=== PATIENT | female | born 2000 | race Caucasian/White ===

== ENCOUNTER 2020-12-06 09:32 | Emergency (ER) | payer OTHER ==
[~2020-12-06] VITALS: Ht 160 cm; Wt 54.5 kg
[2020-12-06 09:55] LABS: BILIRUBIN,URINE NEGATIVE (NEG); CLARITY,URINE CLEAR; COLOR,URINE YELLOW; NITRITE,URINE NEGATIVE (NEG); PROTEIN,URINE 100 mg/dL (NEG-TRACE)
[2020-12-06] MEDS ORDERED: IV NORMAL SALINE 1000ML BAG 1,000 ML IV ONE (10:00)
--- NOTE | 2020-12-06 10:12 | PHYS DOC ---
Past Medical History Past Medical History: Other Additional Past Medical Histor: gilberts syndrome Past Surgical History: Tonsillectomy Smoking Status: Never Smoker Alcohol Use: None General Adult EDM: Chief Complaint: FEVER HPI: HPI: Patient is a 20 year old female who presented to ER for evaluation of low abdominal pain for 4 days associated with urinary frequency and urgency with pain. Patient took some Azo few days ago and the pain improved with urination but she still has lower abdominal pain. Patient denies any cough, no chest pain. Patient did have fever and chill. Review of Systems: Review of Systems: Constitutional: Denies fever or chills. [] Eyes: Denies change in visual acuity. [] HENT: Denies nasal congestion or sore throat. [] Respiratory: Denies cough or shortness of breath. [] Cardiovascular: Denies chest pain or edema. [] GI: Positive for low abdominal pain with nausea, no vomiting, no diarrhea : Denies dysuria. Positive for urinary frequency. Musculoskeletal: Denies back pain or joint pain. [] Integument: Denies rash. [] Neurologic: Denies headache, focal weakness or sensory changes. [] Endocrine: Denies polyuria or polydipsia. [] Lymphatic: Denies swollen glands. [] Psychiatric: Denies depression or anxiety. [] Heart Score: C/O Chest Pain: N/A Risk Factors: Risk Factors: DM, Current or recent (<one month) smoker, HTN, HLP, family history of CAD, obesity. Risk Scores: Score 0 - 3: 2.5% MACE over next 6 weeks - Discharge Home Score 4 - 6: 20.3% MACE over next 6 weeks - Admit for Clinical Observation Score 7 - 10: 72.7% MACE over next 6 weeks - Early Invasive Strategies Current Medications: Current Medications Medications (Trade) Dose Ordered Sig/Lary Start Time Stop Time Status Last Admin Dose Admin Ceftriaxone Sodium (Rocephin) 1 gm 1X ONCE 12/06/20 10:30 12/06/20 10:31 Sodium Chloride 1,000 ml @ 1,000 mls/hr 1X ONCE 12/06/20 10:00 12/06/20 10:59 Allergies: Allergies: Allergies Coded Allergies Type Severity Reaction Last Updated Verified No Known Drug Allergies 12/06/20 No Physical Exam: PE: Constitutional: Well developed, well nourished, no acute distress, non-toxic appearance. [] HENT: Normocephalic, atraumatic, bilateral external ears normal, oropharynx moist, no oral exudates, nose normal. [] Eyes: PERRLA, EOMI, conjunctiva normal, no discharge. [] Neck: Normal range of motion, no tenderness, supple, no stridor. [] Cardiovascular:Heart rate regular rhythm, no murmur [] Lungs & Thorax: Bilateral breath sounds clear to auscultation [] Abdomen: Bowel sounds normal, soft, no tenderness, no masses, no pulsatile masses. [] Skin: Warm, dry, no erythema, no rash. [] Back: No tenderness, no CVA tenderness. [] Extremities: No tenderness, no cyanosis, no clubbing, ROM intact, no edema. [] Neurologic: Alert and oriented X 3, normal motor function, normal sensory function, no focal deficits noted. [] Psychologic: Affect normal, judgement normal, mood normal. [] Current Patient Data: Labs: Laboratory Tests Test 12/06/20 09:51 POC Urine HCG, Qualitative Hcg negative (Negative) Vital Signs: Vital Signs Date Time Temp Pulse Resp B/P (MAP) Pulse Ox O2 Delivery O2 Flow Rate FiO2 12/06/20 09:52 99.1 114 16 136/79 (98) 98 Room Air 99.1 EKG: EKG: [] Radiology/Procedures: Radiology/Procedures: [][facility] [address] [place] [address] IMAGING REPORT Signed PATIENT: DAKOTA LANE ACCOUNT: [id number] : 2000 LOCATION: ER AGE: 20 SEX: F EXAM STATUS: REG ER ORD. PHYSICIAN: CONSUELO MURRAY DO REASON: lower abdominal pain, fever PROCEDURE: CT ABD PELV W/ IV CONTRST ONLY CT abdomen pelvis with contrast. HISTORY: Lower abdominal pain, fever CT scan the abdomen pelvis was done using 75 mL Isovue-370 contrast. Lung bases are clear. There is no effusion. Liver is normal in appearance. Spleen is unremarkable. Adrenal glands are normal. Pancreas is normal. There is no mass or hydronephrosis in the left kidney. There is inhomogeneous enhancement of the right kidney most consistent with acute pyelonephritis. Bowel pattern is normal without obstruction. Appendix is normal. Ovaries are generous in size. Left ovarian cyst or prominent follicle is possible. There is no bowel obstruction. There is no free fluid or free air. IMPRESSION: 1. Pyelonephritis right kidney. 2. Prominent ovaries with probable small ovarian cysts or follicles. 3. Normal appendix. 4. No bowel obstruction PQRS Compliance Statement: One or more of the following individualized dose reduction techniques were utilized for this examination: 1. Automated exposure control 2. Adjustment of the mA and/or kV according to patient size 3. Use of iterative reconstruction technique Electronically signed by: Naveen Houston MD (12/06/2020 12:09 PM) [id number] DICTATED and SIGNED BY: NAVEEN HOUSTON MD DATE: 12/06/20 [id number] Course & Med Decision Making: Course & Med Decision Making Pertinent Labs and Imaging studies reviewed. (See chart for details) Patient is a 20-year-old female who was found to have pyelonephritis, patient was given IV fluids, IV Rocephin and pain medication in the ER, she felt much better. Patient will be discharged home with 10-day course of Levaquin. She will need to follow-up with her family physician for reevaluation next week. Patient is amenable to plan of care. Anitra Disclaimer: Anitra Disclaimer: This electronic medical record was generated, in whole or in part, using a voice recognition dictation system. Departure Departure Impression: Primary Impression: Pyelonephritis Disposition: DC HOME SELF CARE/HOMELESS Condition: IMPROVED Referrals: NON,STAFF (PCP) Please follow up with your doctor on Monday for reevaluation Patient Instructions: Pyelonephritis, Adult Additional Instructions: Thank you for visiting our Emergency Department. We appreciate you trusting us with your care. If any additional problems come up don't hesitate to return to visit us. Please follow up with your primary care provider so they can plan additional care if needed and know about the problem that you had. If symptoms worsen come back to the Emergency Department. Any concerning symptoms that start such as chest pain, shortness of air, weakness or numbness on one side of the body, running high fevers or any other concerning symptoms return to the ER. Scripts Naproxen Sodium (ANAPROX DS) 550 Mg Tablet 1 TAB PO BID PRN for PAIN for 15 Days, #30 TAB 0 Refills Prov: CONSUELO MURRAY DO 12/06/20 Levofloxacin (LEVOFLOXACIN) 750 Mg Tablet 1 TAB PO DAILY for 10 Days, #10 TAB Prov: CONSUELO MURRAY DO 12/06/20 CONSUELO MURRAY DO Dec 06, 2020 10:12
[2020-12-06 10:13] LABS: BACTERIA,URINE MODERATE /HPF (0-FEW)
[2020-12-06] MEDS ORDERED: ONDANSETRON PF 4 MG/2 ML VIAL. IVP ONE (10:30)
[2020-12-06] MEDS ORDERED: cefTRIAXone IV Push 1 GM VIAL. IVP ONE (10:30)
[2020-12-06] MEDS ORDERED: fentaNYL PF VIAL 100 MCG/2 ML VIAL IVP ONE (10:30)
[2020-12-06 10:43] LABS: BASO % 0 % (0-3); EOS % 0 % (0-3); HEMATOCRIT 41.6 % (36.0-47.0); HEMOGLOBIN 14.1 g/dL (12.0-15.5); LYMPH # 0.5 x10^3/uL (1.0-4.8); LYMPH % 3 % (24-48); MEAN CORPUSCULAR HEMOGLOBIN 31 pg (25-35); MEAN CORPUSCULAR HGB CONC 34 g/dL (31-37); MEAN CORPUSCULAR VOLUME 93 fL (79-100); MONO # 1.3 x10^3/uL (0.0-1.1); MONO % 9 % (0-9); NEUT # 13.5 x10^3/uL (1.8-7.7); NEUT % 88 % (31-73); PLATELET COUNT 124 x10^3/uL (140-400); RED CELL DISTRIBUTION WIDTH 12.8 % (11.5-14.5); WHITE BLOOD COUNT 15.4 x10^3/uL (4.0-11.0)
[2020-12-06 10:45] VITALS: BP 129/83
[2020-12-06 10:52] LABS: CALCIUM 8.6 mg/dL (8.5-10.1); POTASSIUM 3.3 mmol/L (3.5-5.1)
[2020-12-06 10:58] LABS: ALBUMIN 3.1 g/dL (3.4-5.0); ALBUMIN/GLOBULIN RATIO 0.9 (1.0-1.7); TOTAL BILIRUBIN 2.2 mg/dL (0.2-1.0); TOTAL PROTEIN 6.7 g/dL (6.4-8.2)
[2020-12-06] MEDS ORDERED: ACETAMINOPHEN 500 MG TABLET PO ONE (11:00)
[2020-12-06 11:08] LABS: % BANDS 9 % (0-9); % LYMPHS 5 % (24-48); % MONOS 4 % (0-10); % SEGS 82 % (35-66); PLT ESTIMATE ADEQUATE (ADEQUATE)
[2020-12-06] MEDS ORDERED: MORPHINE SULFATE 4 MG/ML VIAL. IV ONE (11:30)
[2020-12-06] MEDS ORDERED: IOHEXOL 300 MG/ML 100ML VIAL. IV ONE (12:00)
[2020-12-06] MEDS ORDERED: CONTRAST GIVEN. MC PRN (12:00)
--- NOTE | 2020-12-06 12:11 | RAD ---
CT abdomen pelvis with contrast. HISTORY: Lower abdominal pain, fever CT scan the abdomen pelvis was done using 75 mL Isovue-370 contrast. Lung bases are clear. There is n o effusion. Liver is normal in appearance. Spleen is unremarkable. Adrenal glands are normal. Pancrea s is normal. There is no mass or hydronephrosis in the left kidney. There is inhomogeneous enhancemen t of the right kidney most consistent with acute pyelonephritis. Bowel pattern is normal without obst ruction. Appendix is normal. Ovaries are generous in size. Left ovarian cyst or prominent follicle is possible. There is no bowel obstruction. There is no free fluid or free air. IMPRESSION: 1. Pyelonephritis right kidney. 2. Prominent ovaries with probable small ovarian cysts or follicles. 3. Normal appendix. 4. No bowel obstruction PQRS Compliance Statement: One or more of the following individualized dose reduction techniques were utilized for this examinat ion: 1. Automated exposure control 2. Adjustment of the mA and/or kV according to patient size 3. Use of iterative reconstruction technique Electronically signed by: Naveen Anderson MD (12/06/2020 12:09 PM) [id number]
[2020-12-06] MEDS ORDERED: KETOROLAC 30 MG/ML VIAL. IVP ONE (12:30)
[2020-12-06] MEDS ORDERED: NAPR-682 PO (13:41)
[2020-12-06] MEDS ORDERED: LEVO750T5 PO (13:41)
[2020-12-07] MEDS ORDERED: ALPR0.5T6 PO (18:04)
== END 2020-12-06 13:56 | disposition home or self-care (01) ==
LOC: ER 09:32
DX: N12 Tubulo-interstitial nephritis, not specified as acute or chronic (principal); R10.30 Lower abdominal pain, unspecified; R35.0 Frequency of micturition; Z90.89 Acquired absence of other organs
CPT/HCPCS: 36415; 74177; 80053; 81001; 81025; 85007; 85025; 87086; 96361; 96374; 96375; 99285; J0696; J1885; J2270; J2405; J3010; J7030

== ENCOUNTER 2020-12-07 13:34 | Inpatient (IN) | payer OTHER ==
[~2020-12-07] VITALS: Ht 157.5 cm; Wt 52.0 kg
[~2020-12-07 13:34] MED LIST: LEVO750T5 PO; NAPR-682 PO
--- NOTE | 2020-12-07 14:27 | PHYS DOC ---
Past Medical History Past Medical History: Other Additional Past Medical Histor: gilberts syndrome Past Surgical History: Tonsillectomy Smoking Status: Never Smoker Alcohol Use: None General Adult EDM: Chief Complaint: FLANK PAIN HPI: HPI: Patient is a 20 year old female who presents to the emergency department for admission to the hospital for right-sided pyelonephritis. Patient states she was seen here yesterday in the emergency department and evaluated for low abdominal pain on the right side for 4 days with increased urinary frequency and pain with urination. Patient states she had taken some [id number] Azo prior to being seen yesterday with noted improvement in pain with on urination but still had the abdominal pain. Patient states she was started on 750 mg Levaquin and was told if her symptoms did not get better to come back for admission to the hospital. Patient currently denies chest pain, shortness of breath, back pain, rashes, fever or chills. Patient does state that her abdominal pain has now given her a headache and made her feel as if she was short of breath. Patient denies any increased urination or increased thirst. Patient denies any swelling of her glands. Patient denies any recent depressions or anxieties. Patient denies chest congestion, nasal congestion, sore throat. Review of Systems: Review of Systems: 14 body systems of review of systems have been reviewed. See HPI for pertinent positives and negative responses, otherwise all other systems are negative, nonpertinent or noncontributory. Heart Score: C/O Chest Pain: No Risk Factors: Risk Factors: DM, Current or recent (<one month) smoker, HTN, HLP, family history of CAD, obesity. Risk Scores: Score 0 - 3: 2.5% MACE over next 6 weeks - Discharge Home Score 4 - 6: 20.3% MACE over next 6 weeks - Admit for Clinical Observation Score 7 - 10: 72.7% MACE over next 6 weeks - Early Invasive Strategies Allergies: Allergies: Allergies Coded Allergies Type Severity Reaction Last Updated Verified No Known Drug Allergies 12/06/20 No Physical Exam: PE: Constitutional: Well developed, well nourished, no acute distress, non-toxic appearance. 20-year-old female in no apparent distress. HENT: Normocephalic, atraumatic, bilateral external ears normal, oropharynx moist, no oral exudates, nose normal. Oropharynx pink, no postnasal drip, no tonsillar edema or swelling, no signs of deep tissue infection, bilateral TMs normal, nasal turbinates not swollen without drainage. Eyes: PERRLA, EOMI, conjunctiva normal, no discharge. Neck: Normal range of motion, no tenderness, supple, no stridor. No nuchal rigidity, no meningismus signs, no cervical spinal pain. Cardiovascular:Heart rate regular rhythm, no murmur, heart sounds S1-S2 to auscultation. Lungs & Thorax: Bilateral breath sounds clear to auscultation all lung rivas. No adventitious lung sounds appreciated. Abdomen: Bowel sounds normal, soft, no masses, no pulsatile masses. Pain to palpation right upper and lower quadrant and flank pain. Skin: Warm, dry, no erythema, no rash. Back: No midline spinal tenderness to palpation, no left-sided CVA tenderness, positive right-sided CVA tenderness. Extremities: No tenderness, no cyanosis, no clubbing, ROM intact, no edema. Distal cap refill less than 2 seconds, +2/4 pulses. Neurologic: Alert and oriented X 3, normal motor function, normal sensory function, no focal deficits noted. Psychologic: Affect normal, judgement normal, mood normal. EKG: EKG: [] Radiology/Procedures: Radiology/Procedures: [] Course & Med Decision Making: Course & Med Decision Making Pertinent Labs and Imaging studies reviewed. (See chart for details) 20-year-old female, vital signs reviewed, presents to the ER with concerns of ongoing pyelonephritis and is requesting admission as directed by the ED provider she seen yesterday here at [facility]. Physical exam was consistent with pyelonephritis. ED plan will insert saline lock, give pain medications and nausea medications, draw CBC, CMP, urinalysis, repeat urine test, call HIMS physician for admission to hospital for diagnosis of right-sided pyelonephritis with failed home therapy. Patient does have a history of hypertension, states she is full to take atenolol daily, states she has not taken it in 2 months, states she is just not into taking care of her blood pressure the states. Discussed patient case with Dr. Jeong who has agreed to accept patient under admission to the medical surgical unit with a diagnosis of right pyelonephritis with the information he was given by me. Dr. Jeong recommended pharmacy dosed Zosyn, this was ordered in the ED today. Dr. Jeong has assumed patient care at this time. Anitra Disclaimer: Anitra Disclaimer: This electronic medical record was generated, in whole or in part, using a voice recognition dictation system. Departure Departure Impression: Primary Impression: Pyelonephritis Disposition: 09 ADMITTED INPT THIS HOSP (Admit to Dr. Jeong to the medical surgical unit with diagnosis of right-sided pyelonephritis) [facility] Referrals: RAE SOMERS MD (PCP) JOHN MEJIA APRN Dec 07, 2020 14:27
[2020-12-07] MEDS ORDERED: HYDROmorphone 2 MG/ML VIAL IVP ONE (14:45)
[2020-12-07] MEDS ORDERED: IV NORMAL SALINE 1000ML BAG 1,000 ML IV ONE (14:45)
[2020-12-07] MEDS ORDERED: KETOROLAC 15 MG/ML VIAL. IVP ONE (14:45)
[2020-12-07] MEDS ORDERED: ONDANSETRON PF 4 MG/2 ML VIAL. IVP ONE (14:45)
[2020-12-07 14:48] LABS: BASO % 0 % (0-3); EOS % 0 % (0-3); HEMATOCRIT 38.7 % (36.0-47.0); HEMOGLOBIN 13.2 g/dL (12.0-15.5); LYMPH # 0.9 x10^3/uL (1.0-4.8); LYMPH % 8 % (24-48); MEAN CORPUSCULAR HEMOGLOBIN 31 pg (25-35); MEAN CORPUSCULAR HGB CONC 34 g/dL (31-37); MEAN CORPUSCULAR VOLUME 92 fL (79-100); MONO # 1.1 x10^3/uL (0.0-1.1); MONO % 10 % (0-9); NEUT % 81 % (31-73); PLATELET COUNT 121 x10^3/uL (140-400); RED BLOOD COUNT 4.19 x10^6/uL (3.50-5.40)
[2020-12-07 14:58] LABS: CALCIUM 8.8 mg/dL (8.5-10.1); CREATININE 0.8 mg/dL (0.6-1.0); GFR 90.5
[2020-12-07 15:03] LABS: ALBUMIN 2.7 g/dL (3.4-5.0); ALBUMIN/GLOBULIN RATIO 0.7 (1.0-1.7); TOTAL BILIRUBIN 1.9 mg/dL (0.2-1.0); TOTAL PROTEIN 6.5 g/dL (6.4-8.2)
[2020-12-07] MEDS ORDERED: PIP/TAZO PER PHARMACY MC PRN (15:45)
[2020-12-07] MEDS ORDERED: PIPERACILLIN/TAZOBACTAM 3.375 GM in IV NORMAL SALINE 50ML 50 ML IV ONE (15:45)
[2020-12-07 17:02] LABS: BILIRUBIN,URINE NEGATIVE (NEG); CLARITY,URINE CLEAR; COLOR,URINE YELLOW; NITRITE,URINE NEGATIVE (NEG); PH,URINE 6.5 (<5.0-8.0); PROTEIN,URINE 30 mg/dL (NEG-TRACE)
[2020-12-07 17:11] LABS: RBC,URINE OCC /HPF (0-2)
[2020-12-07 17:12] LABS: BACTERIA,URINE FEW /HPF (0-FEW)
--- NOTE | 2020-12-07 17:47 | HP ---
ADMIT DATE: 12/07/2020 CHIEF COMPLAINT: Flank pain. HISTORY OF PRESENT ILLNESS: The patient is a pleasant 20-year-old female who was sent home from the ER yesterday with a diagnosis of a UTI. She did get some antibiotics, but now her symptoms are worsening. She tried [id number] Azo, but that still did not work. She rates her symptoms at 9/10. I discussed the case with the ER physician. It appears she has pyelonephritis. We are going to admit the patient, give her fluids and antibiotics. PAST MEDICAL HISTORY: Gilbert syndrome, tonsillectomy and UTI and pyelonephritis. ALLERGIES: None. FAMILY HISTORY: Pyelonephritis. SOCIAL HISTORY: She does not drink, smoke or take drugs. She has a 3-year-old son. 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 MEDICATIONS: Reviewed, please refer to the MRAD. REVIEW OF SYSTEMS: GENERAL: No history of weight change, weakness or fevers. SKIN: No bruising, hair changes or rashes. EYES: No blurred, double or loss of vision. NOSE AND THROAT: No history of nosebleeds, hoarseness or sore throat. HEART: No history of palpitations, chest pain or shortness of breath on exertion. LUNGS: Denies cough, hemoptysis, wheezing or shortness of breath. GASTROINTESTINAL: Denies changes in appetite, nausea, vomiting, diarrhea or constipation. GENITOURINARY: No history of frequency, urgency, hesitancy or nocturia. NEUROLOGIC: Denies history of numbness, tingling, tremor or weakness. PSYCHIATRIC: No history of panic, anxiety or depression. ENDOCRINE: No history of heat or cold intolerance, polyuria or polydipsia. EXTREMITIES: Denies muscle weakness, joint pain, pain on walking or stiffness. MUSCULOSKELETAL: She complains of flank pain. PHYSICAL EXAMINATION: VITALS: Within normal limits and are stable. GENERAL: No apparent distress. Alert and oriented. HEENT: Normal cephalic atraumatic, external auditory canals are patent. EYES: Extraocular muscles are intact, pupils are equally round and reactive to light and accommodation. MUSCULOSKELETAL: Well developed, well nourished, good range of motion. ENDOCRINE: No thyromegaly was palpated. LYMPHATICS: No cervical chain or axillary nodes were noted. HEMATOPOIETIC: No bruising. NECK: Supple, no JVD, no thyromegaly was noted. LUNGS: Clear to auscultation in all lung rivas without rhonchi or wheezing. HEART: RRR, S1, S2 present. Peripheral pulses intact, no obvious murmurs were noted. ABDOMEN: Soft, nontender. Positive bowel sounds no organomegaly, normal bowel sounds. EXTREMITIES: Without any cyanosis, clubbing, or edema. Pedal pulses intact, Homans sign is negative. NEUROLOGIC: Normal speech, normal tone. A & O x 3, moves all extremities, no obvious focal deficits. PSYCHIATRIC: Normal affect, normal mood. Stable. SKIN: No ulcerations or rashes, good skin turgor, no jaundice. VASCULAR: Good capillary refill, neurovascular bundle appears to be intact. LABORATORY DATA: White count is 11. Electrolytes are normal other than potassium of 3. Urinalysis shows trace leukocyte esterase and 1-4 white cells. ASSESSMENT AND PLAN: Urinary tract infection, probable pyelonephritis and hypokalemia. The patient has been admitted. We will start IV fluids, IV antibiotics. Replace her potassium. Trend labs, home medications, DVT prophylaxis. Full code. LUCIANO WAKEFIELD DO DR: JANE/christine JOB#: [id number] / [id number]
[2020-12-07] MEDS ORDERED: ALPR0.5T6 PO (18:04)
[2020-12-07 18:30] VITALS: BP 119/73
[2020-12-07] MEDS: HYDROcodone/APAP 5/325MG 1 TAB TABLET PO PRN (19:46)
[2020-12-07] MEDS: IV NORMAL SALINE 1000ML BAG 1,000 ML IV SCH (19:51)
[2020-12-07 23:00] VITALS: BP 134/87
[2020-12-08] MEDS: PIPERACILLIN/TAZOBACTAM 3.375 GM in IV NORMAL SALINE 50ML 50 ML IV SCH ×4 (00:10→17:43)
[2020-12-08] MEDS: IBUPROFEN 200 MG TABLET. PO PRN ×3 (00:13→17:41)
[2020-12-08] MEDS: HYDROcodone/APAP 5/325MG 1 TAB TABLET PO PRN ×3 (00:13→13:40)
[2020-12-08 03:00] VITALS: BP 129/82
[2020-12-08] MEDS: IV NORMAL SALINE 1000ML BAG 1,000 ML IV SCH ×3 (06:24→21:50)
[2020-12-08 07:00] VITALS: BP 123/84
--- NOTE | 2020-12-08 08:08 | PDOC ---
PROGRESS NOTES Date of Service: DATE: 12/08/20 TIME: 08:07 Chief Complaint Chief Complaint ASSESSMENT AND PLAN: Urinary tract infection, acute pyelonephritis hypokalemia. fever sepsis plan admitted. IV fluids, IV antibiotics. Replace potassium. Trend labs, home medications, DVT prophylaxis. Full code. blood culture renal sono 12-08 History of Present Illness History of Present Illness CHIEF COMPLAINT: Flank pain. HISTORY OF PRESENT ILLNESS: The patient is a pleasant 20-year-old female who was sent home from the ER yesterday with a diagnosis of a UTI. She did get some antibiotics, but now her symptoms are worsening. She tried smmb-[id number] Azo, but that still did not work. She rates her symptoms at 9/10. I discussed the case with the ER physician. It appears she has pyelonephritis. We are going to admit the patient, give her fluids and antibiotics. PAST MEDICAL HISTORY: Gilbert syndrome, tonsillectomy and UTI and pyelonephritis. ALLERGIES: None. FAMILY HISTORY: Pyelonephritis. SOCIAL HISTORY: She does not drink, smoke or take drugs. She has a 3-year-old son. 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 MEDICATIONS: Reviewed, please refer to the MRAD. REVIEW OF SYSTEMS: GENERAL: No history of weight change, weakness or fevers. SKIN: No bruising, hair changes or rashes. EYES: No blurred, double or loss of vision. NOSE AND THROAT: No history of nosebleeds, hoarseness or sore throat. HEART: No history of palpitations, chest pain or shortness of breath on exertion. LUNGS: Denies cough, hemoptysis, wheezing or shortness of breath. GASTROINTESTINAL: Denies changes in appetite, nausea, vomiting, diarrhea or constipation. GENITOURINARY: No history of frequency, urgency, hesitancy or nocturia. NEUROLOGIC: Denies history of numbness, tingling, tremor or weakness. PSYCHIATRIC: No history of panic, anxiety or depression. ENDOCRINE: No history of heat or cold intolerance, polyuria or polydipsia. EXTREMITIES: Denies muscle weakness, joint pain, pain on walking or stiffness. MUSCULOSKELETAL: She complains of flank pain. Vitals Vitals Vital Signs Date Time Temp Pulse Resp B/P (MAP) Pulse Ox O2 Delivery O2 Flow Rate FiO2 12/08/20 05:47 Room Air 12/08/20 03:00 98.9 80 20 129/82 (98) 97 98.9 Physical Exam Physical Exam GENERAL: No apparent distress. Alert and oriented. HEENT: Normal cephalic atraumatic, external auditory canals are patent. EYES: Extraocular muscles are intact, pupils are equally round and reactive to light and accommodation. MUSCULOSKELETAL: Well developed, well nourished, good range of motion. ENDOCRINE: No thyromegaly was palpated. LYMPHATICS: No cervical chain or axillary nodes were noted. HEMATOPOIETIC: No bruising. NECK: Supple, no JVD, no thyromegaly was noted. LUNGS: Clear to auscultation in all lung rivas without rhonchi or wheezing. HEART: RRR, S1, S2 present. Peripheral pulses intact, no obvious murmurs were noted. ABDOMEN: Soft, nontender. Positive bowel sounds no organomegaly, normal bowel sounds. EXTREMITIES: Without any cyanosis, clubbing, or edema. Pedal pulses intact, Homans sign is negative. NEUROLOGIC: Normal speech, normal tone. A & O x 3, moves all extremities, no obvious focal deficits. PSYCHIATRIC: Normal affect, normal mood. Stable. SKIN: No ulcerations or rashes, good skin turgor, no jaundice. VASCULAR: Good capillary refill, neurovascular bundle appears to be intact. General: Alert, Oriented X3, Cooperative, No acute distress Heart: Regular rate, Normal S1, No murmurs Lungs: Clear Abdomen: Normal bowel sounds, Soft, No tenderness Extremities: No clubbing, No cyanosis Skin: No significant lesion Labs LABS EXAM: Renal sonogram. HISTORY: Acute pyelonephritis. TECHNIQUE: Sonographic imaging of the kidneys and bladder was performed. COMPARISON: CT dated 12/06/2020. FINDINGS: The kidneys are prominent in size. No solid or cystic renal lesion is seen. There is no hydronephrosis. The bladder is unremarkable. IMPRESSION: 1. Prominent renal size. 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 2. No acute sonographic finding. The recently demonstrated right pyelonephritis demonstrates no sonographic correlate. Electronically signed by: Yomaira Wellington MD (12/08/2020 10:22 AM) [id number] DICTATED and SIGNED BY: YOMAIRA WELLINGTON MD PATIENT: DAKOTA LANE: [id number] : 2000 LOCATION: ER AGE: 20 SEX: F EXAM STATUS: REG ER ORD. PHYSICIAN: CONSUELO MURRAY DO REASON: lower abdominal pain, fever PROCEDURE: CT ABD PELV W/ IV CONTRST ONLY CT abdomen pelvis with contrast. HISTORY: Lower abdominal pain, fever CT scan the abdomen pelvis was done using 75 mL Isovue-370 contrast. Lung bases are clear. There is no effusion. Liver is normal in appearance. Spleen is unremarkable. Adrenal glands are normal. Pancreas is normal. There is no mass or hydronephrosis in the left kidney. There is inhomogeneous enhancement of the right kidney most consistent with acute pyelonephritis. Bowel pattern is normal without obstruction. Appendix is normal. Ovaries are generous in size. Left ovarian cyst or prominent follicle is possible. There is no bowel obstruction. There is no free fluid or free air. IMPRESSION: 1. Pyelonephritis right kidney. 2. Prominent ovaries with probable small ovarian cysts or follicles. 3. Normal appendix. 4. No bowel obstruction PQRS Compliance Statement: One or more of the following individualized dose reduction techniques were utilized for this examination: 1. Automated exposure control 2. Adjustment of the mA and/or kV according to patient size 3. Use of iterative reconstruction technique Electronically signed by: Naveen Anderson MD (12/06/2020 12:09 PM) [id number] DICTATED and SIGNED BY: NAVEEN ANDERSON MD DATE: 12/06/20 [id number] Laboratory Tests Test 12/07/20 14:15 12/07/20 16:50 12/07/20 16:57 White Blood Count 11.0 x10^3/uL (4.0-11.0) Red Blood Count 4.19 x10^6/uL (3.50-5.40) Hemoglobin 13.2 g/dL (12.0-15.5) Hematocrit 38.7 % (36.0-47.0) Mean Corpuscular Volume 92 fL (79-100) Mean Corpuscular Hemoglobin 31 pg (25-35) Mean Corpuscular Hemoglobin Concent 34 g/dL (31-37) Red Cell Distribution Width 13.0 % (11.5-14.5) Platelet Count 121 x10^3/uL (140-400) Neutrophils (%) (Auto) 81 % (31-73) Lymphocytes (%) (Auto) 8 % (24-48) Monocytes (%) (Auto) 10 % (0-9) Eosinophils (%) (Auto) 0 % (0-3) Basophils (%) (Auto) 0 % (0-3) Neutrophils # (Auto) 9.0 x10^3/uL (1.8-7.7) Lymphocytes # (Auto) 0.9 x10^3/uL (1.0-4.8) Monocytes # (Auto) 1.1 x10^3/uL (0.0-1.1) Eosinophils # (Auto) 0.0 x10^3/uL (0.0-0.7) Basophils # (Auto) 0.0 x10^3/uL (0.0-0.2) Sodium Level 137 mmol/L (136-145) Potassium Level 3.0 mmol/L (3.5-5.1) Chloride Level 106 mmol/L (98-107) Carbon Dioxide Level 22 mmol/L (21-32) Anion Gap 9 (6-14) Blood Urea Nitrogen 10 mg/dL (7-20) Creatinine 0.8 mg/dL (0.6-1.0) Estimated GFR (Cockcroft-Gault) 90.5 BUN/Creatinine Ratio 13 (6-20) Glucose Level 54 mg/dL (70-99) Lactic Acid Level 1.2 mmol/L (0.4-2.0) Calcium Level 8.8 mg/dL (8.5-10.1) Total Bilirubin 1.9 mg/dL (0.2-1.0) Aspartate Amino Transf (AST/SGOT) 21 U/L (15-37) Alanine Aminotransferase (ALT/SGPT) 50 U/L (14-59) Alkaline Phosphatase 138 U/L (46-116) Total Protein 6.5 g/dL (6.4-8.2) Albumin 2.7 g/dL (3.4-5.0) Albumin/Globulin Ratio 0.7 (1.0-1.7) Urine Collection Type Void Urine Color Yellow Urine Clarity Clear Urine pH 6.5 (<5.0-8.0) Urine Specific [place] 1.015 (1.000-1.030) Urine Protein 30 mg/dL (NEG-TRACE) Urine Glucose (UA) Negative mg/dL (NEG) Urine Ketones (Stick) Trace mg/dL (NEG) Urine Blood Negative (NEG) Urine Nitrite Negative (NEG) Urine Bilirubin Negative (NEG) Urine Urobilinogen Dipstick 1.0 mg/dL (0.2 mg/dL) Urine Leukocyte Esterase Trace (NEG) Urine RBC Occ /HPF (0-2) Urine WBC 1-4 /HPF (0-4) Urine Squamous Epithelial Cells Few /LPF Urine Bacteria Few /HPF (0-FEW) Bedside Urine HCG, Qualitative Hcg negative (Negative) Assessment and Plan Assessmemt and Plan Problems Medical Problems: (1) Pyelonephritis Status: Acute Comment Review of Relevant I have reviewed the following items sam (where applicable) has been applied. Labs Laboratory Tests Test 12/07/20 14:15 12/07/20 16:50 12/07/20 16:57 White Blood Count 11.0 x10^3/uL (4.0-11.0) Red Blood Count 4.19 x10^6/uL (3.50-5.40) Hemoglobin 13.2 g/dL (12.0-15.5) Hematocrit 38.7 % (36.0-47.0) Mean Corpuscular Volume 92 fL (79-100) Mean Corpuscular Hemoglobin 31 pg (25-35) Mean Corpuscular Hemoglobin Concent 34 g/dL (31-37) Red Cell Distribution Width 13.0 % (11.5-14.5) Platelet Count 121 x10^3/uL (140-400) Neutrophils (%) (Auto) 81 % (31-73) Lymphocytes (%) (Auto) 8 % (24-48) Monocytes (%) (Auto) 10 % (0-9) Eosinophils (%) (Auto) 0 % (0-3) Basophils (%) (Auto) 0 % (0-3) Neutrophils # (Auto) 9.0 x10^3/uL (1.8-7.7) Lymphocytes # (Auto) 0.9 x10^3/uL (1.0-4.8) Monocytes # (Auto) 1.1 x10^3/uL (0.0-1.1) Eosinophils # (Auto) 0.0 x10^3/uL (0.0-0.7) Basophils # (Auto) 0.0 x10^3/uL (0.0-0.2) Sodium Level 137 mmol/L (136-145) Potassium Level 3.0 mmol/L (3.5-5.1) Chloride Level 106 mmol/L (98-107) Carbon Dioxide Level 22 mmol/L (21-32) Anion Gap 9 (6-14) Blood Urea Nitrogen 10 mg/dL (7-20) Creatinine 0.8 mg/dL (0.6-1.0) Estimated GFR (Cockcroft-Gault) 90.5 BUN/Creatinine Ratio 13 (6-20) Glucose Level 54 mg/dL (70-99) Lactic Acid Level 1.2 mmol/L (0.4-2.0) Calcium Level 8.8 mg/dL (8.5-10.1) Total Bilirubin 1.9 mg/dL (0.2-1.0) Aspartate Amino Transf (AST/SGOT) 21 U/L (15-37) Alanine Aminotransferase (ALT/SGPT) 50 U/L (14-59) Alkaline Phosphatase 138 U/L (46-116) Total Protein 6.5 g/dL (6.4-8.2) Albumin 2.7 g/dL (3.4-5.0) Albumin/Globulin Ratio 0.7 (1.0-1.7) Urine Collection Type Void Urine Color Yellow Urine Clarity Clear Urine pH 6.5 (<5.0-8.0) Urine Specific [place] 1.015 (1.000-1.030) Urine Protein 30 mg/dL (NEG-TRACE) Urine Glucose (UA) Negative mg/dL (NEG) Urine Ketones (Stick) Trace mg/dL (NEG) Urine Blood Negative (NEG) Urine Nitrite Negative (NEG) Urine Bilirubin Negative (NEG) Urine Urobilinogen Dipstick 1.0 mg/dL (0.2 mg/dL) Urine Leukocyte Esterase Trace (NEG) Urine RBC Occ /HPF (0-2) Urine WBC 1-4 /HPF (0-4) Urine Squamous Epithelial Cells Few /LPF Urine Bacteria Few /HPF (0-FEW) Bedside Urine HCG, Qualitative Hcg negative (Negative) Laboratory Tests Test 12/07/20 14:15 12/07/20 16:50 3/8/21 16:57 White Blood Count 11.0 x10^3/uL (4.0-11.0) Red Blood Count 4.19 x10^6/uL (3.50-5.40) Hemoglobin 13.2 g/dL (12.0-15.5) Hematocrit 38.7 % (36.0-47.0) Mean Corpuscular Volume 92 fL (79-100) Mean Corpuscular Hemoglobin 31 pg (25-35) Mean Corpuscular Hemoglobin Concent 34 g/dL (31-37) Red Cell Distribution Width 13.0 % (11.5-14.5) Platelet Count 121 x10^3/uL (140-400) Neutrophils (%) (Auto) 81 % (31-73) Lymphocytes (%) (Auto) 8 % (24-48) Monocytes (%) (Auto) 10 % (0-9) Eosinophils (%) (Auto) 0 % (0-3) Basophils (%) (Auto) 0 % (0-3) Neutrophils # (Auto) 9.0 x10^3/uL (1.8-7.7) Lymphocytes # (Auto) 0.9 x10^3/uL (1.0-4.8) Monocytes # (Auto) 1.1 x10^3/uL (0.0-1.1) Eosinophils # (Auto) 0.0 x10^3/uL (0.0-0.7) Basophils # (Auto) 0.0 x10^3/uL (0.0-0.2) Sodium Level 137 mmol/L (136-145) Potassium Level 3.0 mmol/L (3.5-5.1) Chloride Level 106 mmol/L (98-107) Carbon Dioxide Level 22 mmol/L (21-32) Anion Gap 9 (6-14) Blood Urea Nitrogen 10 mg/dL (7-20) Creatinine 0.8 mg/dL (0.6-1.0) Estimated GFR (Cockcroft-Gault) 90.5 BUN/Creatinine Ratio 13 (6-20) Glucose Level 54 mg/dL (70-99) Lactic Acid Level 1.2 mmol/L (0.4-2.0) Calcium Level 8.8 mg/dL (8.5-10.1) Total Bilirubin 1.9 mg/dL (0.2-1.0) Aspartate Amino Transf (AST/SGOT) 21 U/L (15-37) Alanine Aminotransferase (ALT/SGPT) 50 U/L (14-59) Alkaline Phosphatase 138 U/L (46-116) Total Protein 6.5 g/dL (6.4-8.2) Albumin 2.7 g/dL (3.4-5.0) Albumin/Globulin Ratio 0.7 (1.0-1.7) Urine Collection Type Void Urine Color Yellow Urine Clarity Clear Urine pH 6.5 (<5.0-8.0) Urine Specific [place] 1.015 (1.000-1.030) Urine Protein 30 mg/dL (NEG-TRACE) Urine Glucose (UA) Negative mg/dL (NEG) Urine Ketones (Stick) Trace mg/dL (NEG) Urine Blood Negative (NEG) Urine Nitrite Negative (NEG) Urine Bilirubin Negative (NEG) Urine Urobilinogen Dipstick 1.0 mg/dL (0.2 mg/dL) Urine Leukocyte Esterase Trace (NEG) Urine RBC Occ /HPF (0-2) Urine WBC 1-4 /HPF (0-4) Urine Squamous Epithelial Cells Few /LPF Urine Bacteria Few /HPF (0-FEW) Bedside Urine HCG, Qualitative Hcg negative (Negative) Medications Current Medications Sodium Chloride 1,000 ml @ 1,000 mls/hr 1X ONCE IV Last administered on 12/07/20at 14:55; Start 12/07/20 at 14:45; Stop 12/07/20 at 15:44; Status DC Ketorolac Tromethamine (Toradol 15mg Vial) 15 mg 1X ONCE IVP Last administered on 12/07/20at 14:56; Start 12/07/20 at 14:45; Stop 12/07/20 at 14:48; Status DC Hydromorphone HCl (Dilaudid) 1 mg 1X ONCE IVP Last administered on 12/07/20 14:56; Start 12/07/20 at 14:45; Stop 12/07/20 at 14:47; Status DC Ondansetron HCl (Zofran) 4 mg 1X ONCE IVP Last administered on 12/07/20at 14:56; Start 12/07/20 at 14:45; Stop 12/07/20 at 14:47; Status DC Piperacillin Sod/ Tazobactam Sod (Zosyn Per Pharmacy) 1 each PRN DAILY PRN MC SEE COMMENTS; Start 12/07/20 at 15:45 Piperacillin Sod/ Tazobactam Sod 3.375 gm/Sodium Chloride 50 ml @ 100 mls/hr 1X ONCE IV Last administered on 12/07/20at 16:12; Start 12/07/20 at 15:45; Stop 12/07/20 at 16:14; Status DC Acetaminophen/ Hydrocodone Bitart (Lortab 5/325) 1 tab PRN Q4HRS PRN PO PAIN Last administered on 12/08/20at 04:47; Start 12/07/20 at 16:45 Piperacillin Sod/ Tazobactam Sod 3.375 gm/Sodium Chloride 50 ml @ 100 mls/hr Q6HRS IV Last administered on 12/08/20at 05:52; Start 12/08/20 at 00:00 Sodium Chloride 1,000 ml @ 75 mls/hr [id number] IV Last administered on 12/08/20at 06:24; Start 12/07/20 at 17:45 Ibuprofen (Motrin) 600 mg PRN Q6HRS PRN PO INFLAMMATION Last administered on 12/08/20at 00:13; Start 12/07/20 at 23:30 Active Scripts Active Anaprox Ds (Naproxen Sodium) 550 Mg Tablet 1 Tab PO BID PRN 15 Days Levofloxacin 750 Mg Tablet 1 Tab PO DAILY 10 Days Reported Alprazolam 0.5 Mg Tablet 1 Tab PO HS PRN Vitals/I & O Vital Sign - Last 24 Hours 12/07/20 12/07/20 12/07/20 12/07/20 14:08 16:10 17:30 17:55 Temp 98.1 98.1 Pulse 113 116 84 Resp 28 B/P (MAP) 161/93 (115) 132/76 (94) 132/78 (96) Pulse Ox 100 99 99 O2 Delivery Room Air Room Air Room Air Room Air 12/07/20 12/07/20 12/07/20 12/07/20 18:30 19:30 19:46 23:00 Temp 99.2 99.8 99.2 99.8 Pulse 103 105 Resp 18 20 B/P (MAP) 119/73 (88) 134/87 (103) Pulse Ox 98 97 O2 Delivery Room Air Room Air Room Air Room Air 12/08/20 12/08/20 12/08/20 12/08/20 00:13 03:00 04:47 05:47 Temp 98.9 98.9 Pulse 80 Resp 20 B/P (MAP) 129/82 (98) Pulse Ox 97 O2 Delivery Room Air Room Air Room Air Room Air Intake and Output 12/07/20 12/07/20 12/08/20 15:00 23:00 07:00 Intake Total 1050 ml Output Total 0 ml Balance 1050 ml Justicifation of Admission Dx: Justifications for Admission: Justification of Admission Dx: Yes Comments: acute pyelonephritis, sepsis TANNER SHERWOOD MD Dec 08, 2020 08:07
[2020-12-08] MEDS ORDERED: POTASSIUM CHLORIDE 20 MEQ TABLET.ER. PO ONE (09:00)
--- NOTE | 2020-12-08 09:17 | NUR ---
SW following. Discussed with RN, pt from home with family, room air, regular diet. Pt currently on IV abx. RN advised no SW needs at this time. SW will continue to follow.
[2020-12-08 09:52] LABS: BASO % 0 % (0-3); EOS # 0.1 x10^3/uL (0.0-0.7); EOS % 1 % (0-3); HEMATOCRIT 33.8 % (36.0-47.0); HEMOGLOBIN 11.8 g/dL (12.0-15.5); LYMPH # 0.9 x10^3/uL (1.0-4.8); LYMPH % 11 % (24-48); MEAN CORPUSCULAR HEMOGLOBIN 32 pg (25-35); MEAN CORPUSCULAR HGB CONC 35 g/dL (31-37); MEAN CORPUSCULAR VOLUME 91 fL (79-100); MONO % 14 % (0-9); NEUT # 5.5 x10^3/uL (1.8-7.7); NEUT % 74 % (31-73); PLATELET COUNT 104 x10^3/uL (140-400); RED BLOOD COUNT 3.74 x10^6/uL (3.50-5.40); RED CELL DISTRIBUTION WIDTH 12.8 % (11.5-14.5); WHITE BLOOD COUNT 7.5 x10^3/uL (4.0-11.0)
[2020-12-08 10:04] LABS: CALCIUM 7.8 mg/dL (8.5-10.1); CREATININE 0.7 mg/dL (0.6-1.0); GFR 105.6
--- NOTE | 2020-12-08 10:24 | RAD ---
EXAM: Renal sonogram. HISTORY: Acute pyelonephritis. TECHNIQUE: Sonographic imaging of the kidneys and bladder was performed. COMPARISON: CT dated 12/06/2020. FINDINGS: The kidneys are prominent in size. No solid or cystic renal lesion is seen. There is no hyd ronephrosis. The bladder is unremarkable. IMPRESSION: 1. Prominent renal size. 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 2. No acute sonographic finding. The recently demonstrated right pyelonephritis demonstrates no sonog raphic correlate. Electronically signed by: Yomaira Alba MD (12/08/2020 10:22 AM) [id number]
[2020-12-08 11:00] VITALS: BP 138/97
[2020-12-08] MEDS: POLYETHYLENE GLYCOL 3350 17 GM PACKET. PO SCH (11:04)
[2020-12-08] MEDS: ONDANSETRON PF 4 MG/2 ML VIAL. IVP PRN (13:38)
[2020-12-08 15:00] VITALS: BP 138/99
--- NOTE | 2020-12-08 19:06 | NUR ---
states that the motrin or lortab did not help. she is hurting all over. would like to call dr for another pain medication. dr. walter
[2020-12-08 19:15] VITALS: BP 143/106
[2020-12-08] MEDS: MORPHINE SULFATE 2 MG/ML VIAL. IV PRN ×2 (19:41→21:52)
[2020-12-08] MEDS: LACTOBACILLUS RHAMNOSUS GG 1 CAPSULE. PO SCH (21:49)
[2020-12-08] MEDS: diphenhydrAMINE HCL 25 MG CAPSULE PO PRN (21:54)
[2020-12-08 23:26] VITALS: BP 138/96
[2020-12-09] MEDS: PIPERACILLIN/TAZOBACTAM 3.375 GM in IV NORMAL SALINE 50ML 50 ML IV SCH ×4 (00:03→17:55)
[2020-12-09] MEDS: HYDROcodone/APAP 5/325MG 1 TAB TABLET PO PRN ×2 (00:08→19:57)
[2020-12-09] MEDS: ONDANSETRON PF 4 MG/2 ML VIAL. IVP PRN ×2 (00:08→06:20)
[2020-12-09 03:14] VITALS: BP 116/74
[2020-12-09 04:46] LABS: BASO % 0 % (0-3); EOS # 0.1 x10^3/uL (0.0-0.7); EOS % 1 % (0-3); HEMATOCRIT 34.6 % (36.0-47.0); HEMOGLOBIN 11.9 g/dL (12.0-15.5); LYMPH # 1.2 x10^3/uL (1.0-4.8); LYMPH % 25 % (24-48); MEAN CORPUSCULAR HEMOGLOBIN 32 pg (25-35); MEAN CORPUSCULAR HGB CONC 34 g/dL (31-37); MEAN CORPUSCULAR VOLUME 93 fL (79-100); MONO # 0.8 x10^3/uL (0.0-1.1); MONO % 15 % (0-9); NEUT # 2.9 x10^3/uL (1.8-7.7); NEUT % 58 % (31-73); PLATELET COUNT 135 x10^3/uL (140-400); RED BLOOD COUNT 3.74 x10^6/uL (3.50-5.40); RED CELL DISTRIBUTION WIDTH 12.8 % (11.5-14.5)
[2020-12-09] MEDS: MORPHINE SULFATE 2 MG/ML VIAL. IV PRN ×5 (06:21→22:12)
[2020-12-09 07:19] VITALS: BP 141/91
--- NOTE | 2020-12-09 08:31 | PDOC ---
PROGRESS NOTES Date of Service: DATE: 12/09/20 TIME: 08:31 Chief Complaint Chief Complaint ASSESSMENT AND PLAN: Urinary tract infection, acute pyelonephritis hypokalemia. fever sepsis plan admitted. IV fluids, IV antibiotics. Replace potassium. Trend labs, home medications, DVT prophylaxis. Full code. blood culture renal sono 12-[address] and CONT IV ZOSYN , CONSULT GI, CHK LFT;S 38 MIN pt exam, chart review, > 50% of time spent with exam, chart review, pt care coordination History of Present Illness History of Present Illness CHIEF COMPLAINT: Flank pain. HISTORY OF PRESENT ILLNESS: The patient is a pleasant 20-year-old female who was sent home from the ER yesterday with a diagnosis of a UTI. She did get some antibiotics, but now her symptoms are worsening. She tried [id number]-[id number] Azo, but that still did not work. She rates her symptoms at 9/10. I discussed the case with the ER physician. It appears she has pyelonephritis. We are going to admit the patient, give her fluids and antibiotics. PAST MEDICAL HISTORY: Gilbert syndrome, tonsillectomy and UTI and pyelonephritis. ALLERGIES: None. FAMILY HISTORY: Pyelonephritis. SOCIAL HISTORY: She does not drink, smoke or take drugs. She has a 3-year-old son. 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 MEDICATIONS: Reviewed, please refer to the MRAD. REVIEW OF SYSTEMS: GENERAL: No history of weight change, weakness or fevers. SKIN: No bruising, hair changes or rashes. EYES: No blurred, double or loss of vision. NOSE AND THROAT: No history of nosebleeds, hoarseness or sore throat. HEART: No history of palpitations, chest pain or shortness of breath on exertion. LUNGS: Denies cough, hemoptysis, wheezing or shortness of breath. GASTROINTESTINAL: Denies changes in appetite, nausea, vomiting, diarrhea or constipation. GENITOURINARY: No history of frequency, urgency, hesitancy or nocturia. NEUROLOGIC: Denies history of numbness, tingling, tremor or weakness. PSYCHIATRIC: No history of panic, anxiety or depression. ENDOCRINE: No history of heat or cold intolerance, polyuria or polydipsia. EXTREMITIES: Denies muscle weakness, joint pain, pain on walking or stiffness. MUSCULOSKELETAL: She complains of flank pain. Vitals Vitals Vital Signs Date Time Temp Pulse Resp B/P (MAP) Pulse Ox O2 Delivery O2 Flow Rate FiO2 12/09/20 07:19 100.1 70 18 141/91 (108) 95 Room Air 100.1 Physical Exam Physical Exam GENERAL: No apparent distress. Alert and oriented. HEENT: Normal cephalic atraumatic, external auditory canals are patent. EYES: Extraocular muscles are intact, pupils are equally round and reactive to light and accommodation. MUSCULOSKELETAL: Well developed, well nourished, good range of motion. ENDOCRINE: No thyromegaly was palpated. LYMPHATICS: No cervical chain or axillary nodes were noted. HEMATOPOIETIC: No bruising. NECK: Supple, no JVD, no thyromegaly was noted. LUNGS: Clear to auscultation in all lung rivas without rhonchi or wheezing. HEART: RRR, S1, S2 present. Peripheral pulses intact, no obvious murmurs were noted. ABDOMEN: Soft, nontender. Positive bowel sounds no organomegaly, normal bowel sounds. EXTREMITIES: Without any cyanosis, clubbing, or edema. Pedal pulses intact, Homans sign is negative. NEUROLOGIC: Normal speech, normal tone. A & O x 3, moves all extremities, no obvious focal deficits. PSYCHIATRIC: Normal affect, normal mood. Stable. SKIN: No ulcerations or rashes, good skin turgor, no jaundice. VASCULAR: Good capillary refill, neurovascular bundle appears to be intact. General: Alert, Oriented X3, Cooperative, No acute distress Heart: Regular rate, Normal S1, No murmurs Lungs: Clear Abdomen: Normal bowel sounds, Soft, No tenderness Extremities: No clubbing, No cyanosis Skin: No significant lesion Labs LABS *One or more of the following individualized dose reduction techniques were utilized for this examination: 1. Automated exposure control. 2. Adjustment of the mA and/or kV according to patient size. 3. Use of iterative reconstruction technique. COMPARISON: 12/06/2020. FINDINGS: Evaluation of the lower thorax demonstrates a new small right and trace left pleural effusions with bilateral posterior dependent and basilar atelectasis. There is no suspicious hepatic lesion. There is cholelithiasis. The pancreas is unremarkable. The spleen is upper normal in size. The adrenal glands are unremarkable. There are heterogeneous hypodense areas within the right kidney due to previously demonstrated pyelonephritis. There are a few tiny fluid density structures within the central aspect of the right kidney measuring up to 6 mm, possibly due to tiny abscesses. There is perinephric and perirenal stranding and urothelial thickening. There is no hydronephrosis. The bladder is unremarkable. There aren't incidental partially degraded renal collecting systems. There is no appendicitis. There is no bowel obstruction. The uterus is unremarkable. There are multiple prominent ovarian follicles and there is moderate pelvic free fluid. The aorta is normal in caliber. There is no lymphadenopathy. There is no suspicious osseous lesion. Not significantly changed, allowing for differences in timing of contrast administration. No drainable abscess is seen. There is associated right perinephric stranding and urothelial thickening. There is no hydronephrosis. IMPRESSION: 1. Right pyelonephritis. There are a few tiny fluid density structures within the central aspect of the right kidney which are new compared to the prior study and possibly due to tiny abscesses. No drainable collection is seen. Follow-up to confirm resolution. 2. New small right and trace left pleural effusions with basilar and posterior dependent atelectasis. 3. Small amount of pelvic free fluid. 4. Cholelithiasis. Electronically signed by: Yomaira Wellington MD (12/09/2020 12:09 PM) [id number] DICTATED and SIGNED BY: YOMAIRA WELLINGTON MD DATE: 12/09/20 [id number] SPEC #: [id number] SEEMA: 12/07/20 STATUS: COMP REQ #: [id number] RECD: 12/07/[address]: JOHN MEJIA APRN SOURCE: VOID ENTR: 12/07/[address]: LUCIANO WAKEFIELD III, DO [facility]: RAE SOMERS MD ORDERED: URINE CULTURE Procedure Result URINE CULTURE Final Final No Growth on 12/09/20 at 0715 Testing Performed by: [address] [id number] For Inquires, the Physician may contact the Microbiology department at [phone] Unless otherwise specified, Testing Performed by: [address] [id number] For Inquires, the Physician may contact the Microbiology department at [phone] --- --------- Laboratory Tests Test 12/08/20 09:30 12/09/20 04:12 White Blood Count 7.5 x10^3/uL (4.0-11.0) 5.0 x10^3/uL (4.0-11.0) Red Blood Count 3.74 x10^6/uL (3.50-5.40) 3.74 x10^6/uL (3.50-5.40) Hemoglobin 11.8 g/dL (12.0-15.5) 11.9 g/dL (12.0-15.5) Hematocrit 33.8 % (36.0-47.0) 34.6 % (36.0-47.0) Mean Corpuscular Volume 91 fL (79-100) 93 fL (79-100) Mean Corpuscular Hemoglobin 32 pg (25-35) 32 pg (25-35) Mean Corpuscular Hemoglobin Concent 35 g/dL (31-37) 34 g/dL (31-37) Red Cell Distribution Width 12.8 % (11.5-14.5) 12.8 % (11.5-14.5) Platelet Count 104 x10^3/uL (140-400) 135 x10^3/uL (140-400) Neutrophils (%) (Auto) 74 % (31-73) 58 % (31-73) Lymphocytes (%) (Auto) 11 % (24-48) 25 % (24-48) Monocytes (%) (Auto) 14 % (0-9) 15 % (0-9) Eosinophils (%) (Auto) 1 % (0-3) 1 % (0-3) Basophils (%) (Auto) 0 % (0-3) 0 % (0-3) Neutrophils # (Auto) 5.5 x10^3/uL (1.8-7.7) 2.9 x10^3/uL (1.8-7.7) Lymphocytes # (Auto) 0.9 x10^3/uL (1.0-4.8) 1.2 x10^3/uL (1.0-4.8) Monocytes # (Auto) 1.0 x10^3/uL (0.0-1.1) 0.8 x10^3/uL (0.0-1.1) Eosinophils # (Auto) 0.1 x10^3/uL (0.0-0.7) 0.1 x10^3/uL (0.0-0.7) Basophils # (Auto) 0.0 x10^3/uL (0.0-0.2) 0.0 x10^3/uL (0.0-0.2) Sodium Level 136 mmol/L (136-145) 137 mmol/L (136-145) Potassium Level 3.0 mmol/L (3.5-5.1) 3.4 mmol/L (3.5-5.1) Chloride Level 106 mmol/L (98-107) 105 mmol/L (98-107) Carbon Dioxide Level 21 mmol/L (21-32) 23 mmol/L (21-32) Anion Gap 9 (6-14) 9 (6-14) Blood Urea Nitrogen 5 mg/dL (7-20) 5 mg/dL (7-20) Creatinine 0.7 mg/dL (0.6-1.0) 0.7 mg/dL (0.6-1.0) Estimated GFR (Cockcroft-Gault) 105.6 105.6 Glucose Level 102 mg/dL (70-99) 103 mg/dL (70-99) Calcium Level 7.8 mg/dL (8.5-10.1) 8.1 mg/dL (8.5-10.1) C-Reactive Protein, Quantitative 304.2 mg/L (0-3.3) Assessment and Plan Assessmemt and Plan Problems Medical Problems: (1) Pyelonephritis Status: Acute Comment Review of Relevant I have reviewed the following items sam (where applicable) has been applied. Labs Laboratory Tests Test 12/07/20 14:15 12/07/20 16:50 12/07/20 16:57 12/08/20 09:30 White Blood Count 11.0 x10^3/uL (4.0-11.0) 7.5 x10^3/uL (4.0-11.0) Red Blood Count 4.19 x10^6/uL (3.50-5.40) 3.74 x10^6/uL (3.50-5.40) Hemoglobin 13.2 g/dL (12.0-15.5) 11.8 g/dL (12.0-15.5) Hematocrit 38.7 % (36.0-47.0) 33.8 % (36.0-47.0) Mean Corpuscular Volume 92 fL (79-100) 91 fL (79-100) Mean Corpuscular Hemoglobin 31 pg (25-35) 32 pg (25-35) Mean Corpuscular Hemoglobin Concent 34 g/dL (31-37) 35 g/dL (31-37) Red Cell Distribution Width 13.0 % (11.5-14.5) 12.8 % (11.5-14.5) Platelet Count 121 x10^3/uL (140-400) 104 x10^3/uL (140-400) Neutrophils (%) (Auto) 81 % (31-73) 74 % (31-73) Lymphocytes (%) (Auto) 8 % (24-48) 11 % (24-48) Monocytes (%) (Auto) 10 % (0-9) 14 % (0-9) Eosinophils (%) (Auto) 0 % (0-3) 1 % (0-3) Basophils (%) (Auto) 0 % (0-3) 0 % (0-3) Neutrophils # (Auto) 9.0 x10^3/uL (1.8-7.7) 5.5 x10^3/uL (1.8-7.7) Lymphocytes # (Auto) 0.9 x10^3/uL (1.0-4.8) 0.9 x10^3/uL (1.0-4.8) Monocytes # (Auto) 1.1 x10^3/uL (0.0-1.1) 1.0 x10^3/uL (0.0-1.1) Eosinophils # (Auto) 0.0 x10^3/uL (0.0-0.7) 0.1 x10^3/uL (0.0-0.7) Basophils # (Auto) 0.0 x10^3/uL (0.0-0.2) 0.0 x10^3/uL (0.0-0.2) Sodium Level 137 mmol/L (136-145) 136 mmol/L (136-145) Potassium Level 3.0 mmol/L (3.5-5.1) 3.0 mmol/L (3.5-5.1) Chloride Level 106 mmol/L (98-107) 106 mmol/L (98-107) Carbon Dioxide Level 22 mmol/L (21-32) 21 mmol/L (21-32) Anion Gap 9 (6-14) 9 (6-14) Blood Urea Nitrogen 10 mg/dL (7-20) 5 mg/dL (7-20) Creatinine 0.8 mg/dL (0.6-1.0) 0.7 mg/dL (0.6-1.0) Estimated GFR (Cockcroft-Gault) 90.5 105.6 BUN/Creatinine Ratio 13 (6-20) Glucose Level 54 mg/dL (70-99) 102 mg/dL (70-99) Lactic Acid Level 1.2 mmol/L (0.4-2.0) Calcium Level 8.8 mg/dL (8.5-10.1) 7.8 mg/dL (8.5-10.1) Total Bilirubin 1.9 mg/dL (0.2-1.0) Aspartate Amino Transf (AST/SGOT) 21 U/L (15-37) Alanine Aminotransferase (ALT/SGPT) 50 U/L (14-59) Alkaline Phosphatase 138 U/L (46-116) Total Protein 6.5 g/dL (6.4-8.2) Albumin 2.7 g/dL (3.4-5.0) Albumin/Globulin Ratio 0.7 (1.0-1.7) Urine Collection Type Void Urine Color Yellow Urine Clarity Clear Urine pH 6.5 (<5.0-8.0) Urine Specific [place] 1.015 (1.000-1.030) Urine Protein 30 mg/dL (NEG-TRACE) Urine Glucose (UA) Negative mg/dL (NEG) Urine Ketones (Stick) Trace mg/dL (NEG) Urine Blood Negative (NEG) Urine Nitrite Negative (NEG) Urine Bilirubin Negative (NEG) Urine Urobilinogen Dipstick 1.0 mg/dL (0.2 mg/dL) Urine Leukocyte Esterase Trace (NEG) Urine RBC Occ /HPF (0-2) Urine WBC 1-4 /HPF (0-4) Urine Squamous Epithelial Cells Few /LPF Urine Bacteria Few /HPF (0-FEW) Bedside Urine HCG, Qualitative Hcg negative (Negative) C-Reactive Protein, Quantitative 304.2 mg/L (0-3.3) Test 12/09/20 04:12 White Blood Count 5.0 x10^3/uL (4.0-11.0) Red Blood Count 3.74 x10^6/uL (3.50-5.40) Hemoglobin 11.9 g/dL (12.0-15.5) Hematocrit 34.6 % (36.0-47.0) Mean Corpuscular Volume 93 fL (79-100) Mean Corpuscular Hemoglobin 32 pg (25-35) Mean Corpuscular Hemoglobin Concent 34 g/dL (31-37) Red Cell Distribution Width 12.8 % (11.5-14.5) Platelet Count 135 x10^3/uL (140-400) Neutrophils (%) (Auto) 58 % (31-73) Lymphocytes (%) (Auto) 25 % (24-48) Monocytes (%) (Auto) 15 % (0-9) Eosinophils (%) (Auto) 1 % (0-3) Basophils (%) (Auto) 0 % (0-3) Neutrophils # (Auto) 2.9 x10^3/uL (1.8-7.7) Lymphocytes # (Auto) 1.2 x10^3/uL (1.0-4.8) Monocytes # (Auto) 0.8 x10^3/uL (0.0-1.1) Eosinophils # (Auto) 0.1 x10^3/uL (0.0-0.7) Basophils # (Auto) 0.0 x10^3/uL (0.0-0.2) Sodium Level 137 mmol/L (136-145) Potassium Level 3.4 mmol/L (3.5-5.1) Chloride Level 105 mmol/L (98-107) Carbon Dioxide Level 23 mmol/L (21-32) Anion Gap 9 (6-14) Blood Urea Nitrogen 5 mg/dL (7-20) Creatinine 0.7 mg/dL (0.6-1.0) Estimated GFR (Cockcroft-Gault) 105.6 Glucose Level 103 mg/dL (70-99) Calcium Level 8.1 mg/dL (8.5-10.1) Laboratory Tests Test 12/08/20 09:30 12/09/20 04:12 White Blood Count 7.5 x10^3/uL (4.0-11.0) 5.0 x10^3/uL (4.0-11.0) Red Blood Count 3.74 x10^6/uL (3.50-5.40) 3.74 x10^6/uL (3.50-5.40) Hemoglobin 11.8 g/dL (12.0-15.5) 11.9 g/dL (12.0-15.5) Hematocrit 33.8 % (36.0-47.0) 34.6 % (36.0-47.0) Mean Corpuscular Volume 91 fL (79-100) 93 fL (79-100) Mean Corpuscular Hemoglobin 32 pg (25-35) 32 pg (25-35) Mean Corpuscular Hemoglobin Concent 35 g/dL (31-37) 34 g/dL (31-37) Red Cell Distribution Width 12.8 % (11.5-14.5) 12.8 % (11.5-14.5) Platelet Count 104 x10^3/uL (140-400) 135 x10^3/uL (140-400) Neutrophils (%) (Auto) 74 % (31-73) 58 % (31-73) Lymphocytes (%) (Auto) 11 % (24-48) 25 % (24-48) Monocytes (%) (Auto) 14 % (0-9) 15 % (0-9) Eosinophils (%) (Auto) 1 % (0-3) 1 % (0-3) Basophils (%) (Auto) 0 % (0-3) 0 % (0-3) Neutrophils # (Auto) 5.5 x10^3/uL (1.8-7.7) 2.9 x10^3/uL (1.8-7.7) Lymphocytes # (Auto) 0.9 x10^3/uL (1.0-4.8) 1.2 x10^3/uL (1.0-4.8) Monocytes # (Auto) 1.0 x10^3/uL (0.0-1.1) 0.8 x10^3/uL (0.0-1.1) Eosinophils # (Auto) 0.1 x10^3/uL (0.0-0.7) 0.1 x10^3/uL (0.0-0.7) Basophils # (Auto) 0.0 x10^3/uL (0.0-0.2) 0.0 x10^3/uL (0.0-0.2) Sodium Level 136 mmol/L (136-145) 137 mmol/L (136-145) Potassium Level 3.0 mmol/L (3.5-5.1) 3.4 mmol/L (3.5-5.1) Chloride Level 106 mmol/L (98-107) 105 mmol/L (98-107) Carbon Dioxide Level 21 mmol/L (21-32) 23 mmol/L (21-32) Anion Gap 9 (6-14) 9 (6-14) Blood Urea Nitrogen 5 mg/dL (7-20) 5 mg/dL (7-20) Creatinine 0.7 mg/dL (0.6-1.0) 0.7 mg/dL (0.6-1.0) Estimated GFR (Cockcroft-Gault) 105.6 105.6 Glucose Level 102 mg/dL (70-99) 103 mg/dL (70-99) Calcium Level 7.8 mg/dL (8.5-10.1) 8.1 mg/dL (8.5-10.1) C-Reactive Protein, Quantitative 304.2 mg/L (0-3.3) Microbiology 12/07/20 Urine Culture - Final, Complete Medications Current Medications Sodium Chloride 1,000 ml @ 1,000 mls/hr 1X ONCE IV Last administered on 12/07/20at 14:55; Start 12/07/20 at 14:45; Stop 12/07/20 at 15:44; Status DC Ketorolac Tromethamine (Toradol 15mg Vial) 15 mg 1X ONCE IVP Last administered on 12/07/20at 14:56; Start 12/07/20 at 14:45; Stop 12/07/20 at 14:48; Status DC Hydromorphone HCl (Dilaudid) 1 mg 1X ONCE IVP Last administered on 12/07/20at 14:56; Start 12/07/20 at 14:45; Stop 12/07/20 at 14:47; Status DC Ondansetron HCl (Zofran) 4 mg 1X ONCE IVP Last administered on 12/07/20at 14:56; Start 12/07/20 at 14:45; Stop 12/07/20 at 14:47; Status DC Piperacillin Sod/ Tazobactam Sod (Zosyn Per Pharmacy) 1 each PRN DAILY PRN MC SEE COMMENTS; Start 12/07/20 at 15:45 Piperacillin Sod/ Tazobactam Sod 3.375 gm/Sodium Chloride 50 ml @ 100 mls/hr 1X ONCE IV Last administered on 12/07/20at 16:12; Start 12/07/20 at 15:45; Stop 12/07/20 at 16:14; Status DC Acetaminophen/ Hydrocodone Bitart (Lortab 5/325) 1 tab PRN Q4HRS PRN PO PAIN Last administered on 12/09/20at 00:08; Start 12/07/20 at 16:45 Piperacillin Sod/ Tazobactam Sod 3.375 gm/Sodium Chloride 50 ml @ 100 mls/hr Q6HRS IV Last administered on 12/09/20at 06:11; Start 12/08/20 at 00:00 Sodium Chloride 1,000 ml @ 150 mls/hr Q6H40M IV Last administered on 12/08/20at 21:50; Start 12/07/20 at 17:45 Ibuprofen (Motrin) 600 mg PRN Q6HRS PRN PO INFLAMMATION Last administered on 12/08/20 17:41; Start 12/07/20 at 23:30 Potassium Chloride (Klor-Con) 40 meq 1X ONCE PO Last administered on 12/08/20 11:07; Start 12/08/20 at 09:00; Stop 12/08/20 at 09:01; Status DC Potassium Chloride (Klor-Con) 20 meq DAILYWBKFT PO ; Start 12/09/20 at 08:00 Diphenhydramine HCl (Benadryl) 25 mg QHS PRN PO INSOMNIA Last administered on 12/08/20at 21:54; Start 12/08/20 at 21:00 Lactobacillus Rhamnosus (Culturelle) 1 cap BID PO Last administered on 12/08/20 21:49; Start 12/08/20 at 21:00 Polyethylene Glycol (miraLAX PACKET) 17 gm DAILY PO Last administered on 12/08/20 11:04; Start 12/08/20 at 11:00 Ondansetron HCl (Zofran) 4 mg PRN Q6HRS PRN IVP NAUSEA/VOMITING Last administered on 12/09/20 06:20; Start 12/08/20 at 13:30 Morphine Sulfate (Morphine Sulfate) 2 mg PRN Q2HR PRN IV PAIN Last administered on 12/09/20 06:21; Start 12/08/20 at 19:30 Active Scripts Active Anaprox Ds (Naproxen Sodium) 550 Mg Tablet 1 Tab PO BID PRN 15 Days Levofloxacin 750 Mg Tablet 1 Tab PO DAILY 10 Days Reported Alprazolam 0.5 Mg Tablet 1 Tab PO HS PRN Vitals/I & O Vital Sign - Last 24 Hours 312/08/20 12/08/20 12/08/20 11:00 14:45 15:00 19:15 Temp 98.7 98.5 99.6 98.7 98.5 99.6 Pulse 71 75 80 Resp 16 18 18 B/P (MAP) 138/97 (111) 138/99 (112) 143/106 (118) Pulse Ox 99 100 100 100 O2 Delivery Room Air Room Air Room Air Room Air 12/08/20 12/08/20 12/08/20 12/08/20 19:41 20:02 20:30 21:52 Resp 20 18 18 Pulse Ox 100 100 O2 Delivery Room Air Room Air Room Air 12/08/20 12/08/20 12/09/20 12/09/20 22:25 23:26 00:08 01:08 Temp 99.0 99.0 Pulse 76 Resp 18 18 18 B/P (MAP) 138/96 (110) Pulse Ox 100 96 96 96 O2 Delivery Room Air Room Air Room Air Room Air 12/09/20 12/09/20 12/09/20 03:14 06:21 07:19 Temp 98.9 100.1 98.9 100.1 Pulse 78 70 Resp 18 22 18 B/P (MAP) 116/74 (88) 141/91 (108) Pulse Ox 97 95 O2 Delivery Room Air Room Air Room Air Intake and Output 12/08/20 12/08/20 12/09/20 15:00 23:00 07:00 Intake Total 120 ml 480 ml Balance 120 ml 480 ml Justicifation of Admission Dx: Justifications for Admission: Justification of Admission Dx: Yes TANNER SHERWOOD MD Dec 09, 2020 08:31
[2020-12-09] MEDS: POLYETHYLENE GLYCOL 3350 17 GM PACKET. PO SCH (08:58)
[2020-12-09] MEDS: LACTOBACILLUS RHAMNOSUS GG 1 CAPSULE. PO SCH ×2 (09:00→19:52)
[2020-12-09] MEDS: POTASSIUM CHLORIDE 20 MEQ TABLET.ER. PO SCH (09:00)
--- NOTE | 2020-12-09 09:32 | PDOC ---
Infectious Disease Note Vital Sign Vital Signs Vital Signs Date Time Temp Pulse Resp B/P (MAP) Pulse Ox O2 Delivery O2 Flow Rate FiO2 12/09/20 07:19 100.1 70 18 141/91 (108) 95 Room Air 100.1 Labs Lab Laboratory Tests Test 12/09/20 04:12 White Blood Count 5.0 x10^3/uL (4.0-11.0) Red Blood Count 3.74 x10^6/uL (3.50-5.40) Hemoglobin 11.9 g/dL (12.0-15.5) Hematocrit 34.6 % (36.0-47.0) Mean Corpuscular Volume 93 fL (79-100) Mean Corpuscular Hemoglobin 32 pg (25-35) Mean Corpuscular Hemoglobin Concent 34 g/dL (31-37) Red Cell Distribution Width 12.8 % (11.5-14.5) Platelet Count 135 x10^3/uL (140-400) Neutrophils (%) (Auto) 58 % (31-73) Lymphocytes (%) (Auto) 25 % (24-48) Monocytes (%) (Auto) 15 % (0-9) Eosinophils (%) (Auto) 1 % (0-3) Basophils (%) (Auto) 0 % (0-3) Neutrophils # (Auto) 2.9 x10^3/uL (1.8-7.7) Lymphocytes # (Auto) 1.2 x10^3/uL (1.0-4.8) Monocytes # (Auto) 0.8 x10^3/uL (0.0-1.1) Eosinophils # (Auto) 0.1 x10^3/uL (0.0-0.7) Basophils # (Auto) 0.0 x10^3/uL (0.0-0.2) Sodium Level 137 mmol/L (136-145) Potassium Level 3.4 mmol/L (3.5-5.1) Chloride Level 105 mmol/L (98-107) Carbon Dioxide Level 23 mmol/L (21-32) Anion Gap 9 (6-14) Blood Urea Nitrogen 5 mg/dL (7-20) Creatinine 0.7 mg/dL (0.6-1.0) Estimated GFR (Cockcroft-Gault) 105.6 Glucose Level 103 mg/dL (70-99) Calcium Level 8.1 mg/dL (8.5-10.1) Micro Microbiology 12/07/20 Urine Culture - Final, Complete Objective Assessment pt seen, consult dictated Plan Plan of Care / SHELDON OLSON MD Dec 09, 2020 09:32
--- NOTE | 2020-12-09 09:34 | NUR ---
SW following. Discussed with RN, pt from home with family, room air, regular diet. Pt on IV abx. SW awaiting ID consult to be dictated. SW will continue to follow.
[2020-12-09] MEDS ORDERED: IOHEXOL 240 MG/ML 50ML VIAL. PO ONE (10:15)
[2020-12-09] MEDS ORDERED: IOHEXOL 300 MG/ML 100ML VIAL. IV ONE (10:15)
--- NOTE | 2020-12-09 10:18 | CONS ---
DATE OF CONSULTATION: 12/09/2020 REQUESTING PHYSICIAN: Dr. Curiel. REASON FOR CONSULTATION: Pyelonephritis. HISTORY OF PRESENT ILLNESS: This is a 20-year-old female who came in with abdominal pain, nausea, vomiting and fever. The patient was in the ER on . In fact, she did have elevated white count, some urinary symptoms, not much she said and some flank pain. The patient had a CT scan done at that time, which showed pyelonephritis of the right kidney. The patient was treated and released and the patient returned with more fever, chills, abdominal pain and flank pain, no urinary symptoms other than she is urinating a lot. The patient has vomited last night. The patient denies any nausea or vomiting right now. The patient denies any headache, visual symptoms, chest pain or shortness of breath. The patient is currently on Zosyn. PAST MEDICAL HISTORY: Positive for Gilbert syndrome, has had tonsillectomy and anxiety disorder. SOCIAL HISTORY: Negative for smoking, alcohol, or illicit drug use. ALLERGIES: No known drug allergies. CURRENT MEDICATIONS: Reviewed. REVIEW OF SYSTEMS: As per HPI, all other systems reviewed are negative. PHYSICAL EXAMINATION: GENERAL: Alert, oriented female, not in any distress. VITAL SIGNS: Stable, temperature 100.1, pulse 70, respirations 18, blood pressure 141/91. HEENT: Both pupils are round and reacting. No conjunctival lesion. No lesion in the mouth. NECK: Supple, no JVP, no lymphadenopathy. LUNGS: Clear. HEART: S1, S2 regular. ABDOMEN: Right upper quadrant tenderness present, no rebound or guarding. No organomegaly appreciated. There is mild right CVA tenderness also present. EXTREMITIES: No edema or cyanosis. SKIN: Unremarkable. NEUROLOGIC: The patient is neurologically alert, awake and appropriate. No focal neurologic deficit. LABORATORY DATA: White count is 5000. BUN and creatinine are normal. CRP is 304. Urinalysis actually is unremarkable, 1-4 wbc's now, on she had 11-20 wbc's. Her urine culture from the is pansensitive E. coli. Her urine culture from 8th on this admission is negative. Ultrasound done of the renal, which was unremarkable. The patient did have CT on which showed right-sided pyelonephritis. IMPRESSION: What appears to be that she has had pyelonephritis on , which is clinically improved, but she does have right upper quadrant tenderness, which may have been either just gastritis versus gallbladder disease. We will repeat the CT and see what it looks like. Continue Zosyn for the time being. If CT is unremarkable, then she should be able to get out on oral antibiotics soon. Thank you very much, Dr. Jeong, for giving me the opportunity to participate in this patient's care. SHELDON OLSON MD DR: JAKOB/christine JOB#: [id number] / [id number]
[2020-12-09 10:33] VITALS: BP 137/99
[2020-12-09 10:52] LABS: ALBUMIN 2.3 g/dL (3.4-5.0); ALBUMIN/GLOBULIN RATIO 0.8 (1.0-1.7); CALCIUM 7.8 mg/dL (8.5-10.1); CREATININE 0.7 mg/dL (0.6-1.0); GFR 105.6; POTASSIUM 3.5 mmol/L (3.5-5.1); TOTAL BILIRUBIN 2.4 mg/dL (0.2-1.0); TOTAL PROTEIN 5.1 g/dL (6.4-8.2)
--- NOTE | 2020-12-09 11:19 | PDOC2 ---
GI CONSULT Date of Service: DATE: 12/09/20 TIME: 11:18 Reason For Consult: abd pain HPI: HPI: Pleasant 20 y/o female admitted 12/07 w/ pyelonephritis. Tells me ill since last . Began w/ loose dark brown stool in the morning, then progressed to right flank and RUQ pain w/ fever that night. Saw chiropractor on Monday, adjustment didn't help. Overnight on Monday and throughout Monday, had ongoing pain and "shaking," also dark urine and more dark stools. Now feels right flank pain has improved but has ongoing RUQ and epigastric pain that is constant and worse w/ movement and after eating. Reports early satiety, nausea, and vomiting x 1 (last night - "yellow acid"). Loose stools stopped so she took Miralax yesterday - reports stool still looked a little darker the usual, "rabbit pellets" mixed with soft stool. Some h/o indigestion - she says she was told this was associated w/ Gilbert's. Takes Pepcid PRN which helps a lot. Also says her godfather gave her Tums yesterday which might have helped a little. No dysphagia, hematemesis, hem atochezia, melena, or weight loss. No previous EGD or colonoscopy. No GB, pancreas, or PUD history. H/o Gilbert's as above (diagnosed w/ PCP). Usually doesn't take NSAIDs but prior to admission was alternating ibuprofen and Tylenol since symptoms began last week. 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 Sister had cholecystectomy - she has concerns for her gallbladder now. Per nurse, father had cancer and then COVID, recently passed. PMH: PMH: UTI, anxiety, Gilbert's tonsillectomy, wisdom teeth FH: Family History: Other (sister - cholecystectomy age 21 for abnormal HIDA) Social History: Smoke: No ALCOHOL: none Drugs: Marijuana (occasional) ROS: GEN: +chills HEENT: Denies blurred vision, sore throat CV: Denies chest pain RESP: Denies shortness of air, cough GI: Per HPI : Denies hematuria, dysuria ENDO: Denies weight changes NEURO: Denies confusion, dizziness MSK: Denies weakness, joint pain/swelling SKIN: Denies jaundice, pruritus Vitals: Vitals: Vital Signs Date Time Temp Pulse Resp B/P (MAP) Pulse Ox O2 Delivery O2 Flow Rate FiO2 12/09/20 10:33 99.0 81 18 137/99 (112) 99 Room Air 99.0 Labs: Labs: Laboratory Tests Test 12/09/20 04:12 White Blood Count 5.0 x10^3/uL (4.0-11.0) Red Blood Count 3.74 x10^6/uL (3.50-5.40) Hemoglobin 11.9 g/dL (12.0-15.5) Hematocrit 34.6 % (36.0-47.0) Mean Corpuscular Volume 93 fL (79-100) Mean Corpuscular Hemoglobin 32 pg (25-35) Mean Corpuscular Hemoglobin Concent 34 g/dL (31-37) Red Cell Distribution Width 12.8 % (11.5-14.5) Platelet Count 135 x10^3/uL (140-400) Neutrophils (%) (Auto) 58 % (31-73) Lymphocytes (%) (Auto) 25 % (24-48) Monocytes (%) (Auto) 15 % (0-9) Eosinophils (%) (Auto) 1 % (0-3) Basophils (%) (Auto) 0 % (0-3) Neutrophils # (Auto) 2.9 x10^3/uL (1.8-7.7) Lymphocytes # (Auto) 1.2 x10^3/uL (1.0-4.8) Monocytes # (Auto) 0.8 x10^3/uL (0.0-1.1) Eosinophils # (Auto) 0.1 x10^3/uL (0.0-0.7) Basophils # (Auto) 0.0 x10^3/uL (0.0-0.2) Sodium Level 138 mmol/L (136-145) Potassium Level 3.5 mmol/L (3.5-5.1) Chloride Level 106 mmol/L (98-107) Carbon Dioxide Level 23 mmol/L (21-32) Anion Gap 9 (6-14) Blood Urea Nitrogen 5 mg/dL (7-20) Creatinine 0.7 mg/dL (0.6-1.0) Estimated GFR (Cockcroft-Gault) 105.6 BUN/Creatinine Ratio 7 (6-20) Glucose Level 100 mg/dL (70-99) Calcium Level 7.8 mg/dL (8.5-10.1) Total Bilirubin 2.4 mg/dL (0.2-1.0) Aspartate Amino Transf (AST/SGOT) 26 U/L (15-37) Alanine Aminotransferase (ALT/SGPT) 44 U/L (14-59) Alkaline Phosphatase 200 U/L (46-116) Total Protein 5.1 g/dL (6.4-8.2) Albumin 2.3 g/dL (3.4-5.0) Albumin/Globulin Ratio 0.8 (1.0-1.7) Allergies: Coded Allergies: No Known Drug Allergies (Unverified , 12/06/20) Medications: Current Medications Medications (Trade) Dose Ordered Sig/Lary Route PRN Reason Start Time Stop Time Status Last Admin Dose Admin Potassium Chloride (Klor-Con) 20 meq DAILYWBKFT PO 12/09/20 08:00 12/09/20 09:00 Diphenhydramine HCl (Benadryl) 25 mg QHS PRN PO INSOMNIA 12/08/20 21:00 12/08/20 21:54 Lactobacillus Rhamnosus (Culturelle) 1 cap BID PO 12/08/20 21:00 12/09/20 09:00 Ondansetron HCl (Zofran) 4 mg PRN Q6HRS PRN IVP NAUSEA/VOMITING 12/08/20 13:30 12/09/20 06:20 Morphine Sulfate (Morphine Sulfate) 2 mg PRN Q2HR PRN IV PAIN 12/08/20 19:30 12/09/20 10:24 Imaging: Imaging: CT A/P 12/06 IMPRESSION: 1. Pyelonephritis right kidney. 2. Prominent ovaries with probable small ovarian cysts or follicles. 3. Normal appendix. 4. No bowel obstruction Renal US 12/08 IMPRESSION: 1. Prominent renal size. 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 2. No acute sonographic finding. The recently demonstrated right pyelonephritis demonstrates no sonographic correlate. PE: GEN: moves slowly w/ discomfort HEENT: Atraumatic, PERRL LUNGS: CTAB HEART: RRR ABD: NABS, S/ND, RUQ to epigastric discomfort to light touch, less in LUQ, worse around right ribs toward right flank EXTREMITY: No edema SKIN: No rashes, no jaundice NEURO/PSYCH: A & O 3 A/P: A/P: Pyelonephritis Upper abd pain, n/v, early satiety Mild anemia (stable), thrombocytopenia (stable), elevated bili and Alk Phos (worse today), elevated CRP H/o dyspeptic symptoms - Pepcid and Tums help CRC screen - average risk H/o Duane's Recent NSAID use - taking ibuprofen here as well FH gallbladder disease -- Await CT. Add acid-orchid hand - she likes Pepcid so will try this (IV for now). Will review additional recs w/ Dr. Antoine. JACQUELINE DOYLE Dec 09, 2020 11:19
[2020-12-09] MEDS: FAMOTIDINE 20 MG/2 ML VIAL IVP SCH ×2 (11:57→19:52)
[2020-12-09] MEDS: IV NORMAL SALINE 1000ML BAG 1,000 ML IV SCH ×3 (11:58→19:52)
--- NOTE | 2020-12-09 12:12 | RAD ---
EXAM: Abdomen and pelvis CT with intravenous contrast. HISTORY: Pain. TECHNIQUE: Computed tomographic images of the abdomen and pelvis were obtained following the administ ration of intravenous contrast. Multiplanar reformatting was performed. *One or more of the following individualized dose reduction techniques were utilized for this examina tion: 1. Automated exposure control. 2. Adjustment of the mA and/or kV according to patient size. 3. Use of iterative reconstruction technique. COMPARISON: 12/06/2020. FINDINGS: Evaluation of the lower thorax demonstrates a new small right and trace left pleural effusi ons with bilateral posterior dependent and basilar atelectasis. There is no suspicious hepatic lesion . There is cholelithiasis. The pancreas is unremarkable. The spleen is upper normal in size. The adre nal glands are unremarkable. There are heterogeneous hypodense areas within the right kidney due to previously demonstrated pyelon ephritis. There are a few tiny fluid density structures within the central aspect of the right kidney measuring up to 6 mm, possibly due to tiny abscesses. There is perinephric and perirenal stranding a nd urothelial thickening. There is no hydronephrosis. The bladder is unremarkable. There aren't incid ental partially degraded renal collecting systems. There is no appendicitis. There is no bowel obstruction. The uterus is unremarkable. There are multip le prominent ovarian follicles and there is moderate pelvic free fluid. The aorta is normal in calibe r. There is no lymphadenopathy. There is no suspicious osseous lesion. Not significantly changed, all owing for differences in timing of contrast administration. No drainable abscess is seen. There is as sociated right perinephric stranding and urothelial thickening. There is no hydronephrosis. IMPRESSION: 1. Right pyelonephritis. There are a few tiny fluid density structures within the central aspect of t he right kidney which are new compared to the prior study and possibly due to tiny abscesses. No drai nable collection is seen. Follow-up to confirm resolution. 2. New small right and trace left pleural effusions with basilar and posterior dependent atelectasis. 3. Small amount of pelvic free fluid. 4. Cholelithiasis. Electronically signed by: Yomaira Alba MD (12/09/2020 12:09 PM) [id number]
[2020-12-09 14:31] VITALS: BP 149/97
[2020-12-09] MEDS: IBUPROFEN 200 MG TABLET. PO PRN (17:07)
[2020-12-09 19:00] VITALS: BP 134/87
[2020-12-09] MEDS: diphenhydrAMINE HCL 25 MG CAPSULE PO PRN (22:12)
[2020-12-09 23:00] VITALS: BP 144/102
[2020-12-10] MEDS: IV NORMAL SALINE 1000ML BAG 1,000 ML IV SCH ×5 (00:16→22:17)
[2020-12-10] MEDS: PIPERACILLIN/TAZOBACTAM 3.375 GM in IV NORMAL SALINE 50ML 50 ML IV SCH ×2 (00:17→06:17)
[2020-12-10] MEDS: MORPHINE SULFATE 2 MG/ML VIAL. IV PRN ×4 (00:21→19:19)
[2020-12-10 03:00] VITALS: BP 134/86
[2020-12-10 07:00] VITALS: BP 150/100
--- NOTE | 2020-12-10 07:37 | RAD ---
Exam Date: 12/10/2020 5:49 AM US ABDOMEN LTD Indication: Reason: ruq pain / Spl. Instructions: / History: TECHNIQUE: Multiple longitudinal and transverse sonographic images of the right upper quadrant and g allbladder are submitted for interpretation. FINDINGS: The liver is normal in size and echogenicity. The portal vein is patent, with hepatopetal flow. No focal intrahepatic abnormality is seen. The gallbladder is normal, without gallstones, gallbladder wall thickening or pericholecystic fluid. There is no biliary ductal dilatation, with the common bile duct measuring 4 mm. The visualized abdominal aorta, inferior vena cava and pancreas are within normal limits. There is n o upper abdominal ascites. The right kidney is normal in appearance, measuring 15.5 cm. IMPRESSION: Normal right upper quadrant abdominal ultrasound exam. Electronically signed by: Syed Michelle MD (12/10/2020 7:35 AM) [id number]
[2020-12-10] MEDS: POLYETHYLENE GLYCOL 3350 17 GM PACKET. PO SCH (08:10)
--- NOTE | 2020-12-10 08:16 | PDOC ---
Infectious Disease Note Subjective Subjective pt is feeling better ROS ROS no n/v/d/ Vital Sign Vital Signs Vital Signs Date Time Temp Pulse Resp B/P (MAP) Pulse Ox O2 Delivery O2 Flow Rate FiO2 12/10/20 07:10 Room Air 12/10/20 07:00 99.5 74 16 150/100 (117) 97 99.5 Physical Exam PHYSICAL EXAM GENERAL: Alert, oriented female, not in any distress. VITAL SIGNS: Stable, HEENT: Both pupils are round and reacting. No conjunctival lesion. No lesion in the mouth. NECK: Supple, no JVP, no lymphadenopathy. LUNGS: Clear. HEART: S1, S2 regular. ABDOMEN: Right upper quadrant tenderness present, no rebound or guarding. No organomegaly appreciated. There is mild right CVA tenderness also present. EXTREMITIES: No edema or cyanosis. SKIN: Unremarkable. NEUROLOGIC: The patient is neurologically alert, awake and appropriate. No focal neurologic deficit. Labs Micro URINE CULTURE Final Final GREATER THAN 100,000 CFU/ML [ESCHERICHIA COLI] on 12/07/20 at 0903 Testing Performed by: [address] [id number] For Inquires, the Physician may contact the Microbiology department at [phone] ESCHERICHIA COLI ANTIMICROBIAL SUSCEPTIBILITY Final Comment NEG GILLIAN 56 ESCHERICHIA COLI ANTIBIOTIC RESULT INTERPRETATION AMPICILLIN/SULBACTAM <=4/2 S AMIKACIN <=16 S AMPICILLIN <=8 S AMOXICILLIN/K CLAVULANATE <=8/4 S AZTREONAM <=4 S CEFTRIAXONE <=1 S CEFTAZIDIME <=1 S CEFOTAXIME <=2 S CEFOXITIN <=8 S CEFAZOLIN <=2 S CIPROFLOXACIN <=0.25 S CEFEPIME <=2 S CEFUROXIME <=4 S CEFTAZIDIME/AVIBACTAM <=4 S ERTAPENEM <=0.5 S NITROFURANTOIN <=32 S GENTAMICIN <=2 S LEVOFLOXACIN <=0.5 S MEROPENEM <=1 S PIPERACILLIN/TAZOBACTAM <=8 S TRIMETHOPRIM/SULFAMETHOXAZOLE <=0.5/9.5 S TETRACYCLINE <=4 S TOBRAMYCIN <=2 S Unless otherwise specified, Testing Performed by: RUN DATE: 12/08/20 [facility] *LIVE* Objective Assessment Rt sided pylonephritis Fever E coli Abdominal pain Plan Plan of Care Rocephine ct noted, abscess tiny supportive care SHELDON OLSON MD Dec 10, 2020 08:16
[2020-12-10] MEDS: POTASSIUM CHLORIDE 20 MEQ TABLET.ER. PO SCH (08:38)
[2020-12-10] MEDS: LACTOBACILLUS RHAMNOSUS GG 1 CAPSULE. PO SCH ×2 (08:38→20:09)
[2020-12-10] MEDS: FAMOTIDINE 20 MG/2 ML VIAL IVP SCH (08:39)
[2020-12-10] MEDS: cefTRIAXone IV Push 2 GM VIAL. IVP SCH (08:39)
[2020-12-10] MEDS: HYDROcodone/APAP 5/325MG 1 TAB TABLET PO PRN ×3 (08:39→17:58)
[2020-12-10] MEDS: ONDANSETRON PF 4 MG/2 ML VIAL. IVP PRN ×2 (08:48→20:16)
--- NOTE | 2020-12-10 09:26 | NUR ---
Dr. Curiel paged re: BP 150/100.
--- NOTE | 2020-12-10 09:48 | NUR ---
SW following. Discussed with RN, pt from home, room air, regular diet. IV abx will be switched to oral upon discharge. RN anticipates discharge home tomorrow (12/11/20). SW will continue to follow.
--- NOTE | 2020-12-10 10:03 | PDOC ---
PROGRESS NOTES Date of Service: DATE: 12/10/20 TIME: 10:02 Chief Complaint Chief Complaint ASSESSMENT AND PLAN: Urinary tract infection, acute pyelonephritis E COLI hypokalemia. fever sepsis GRAM NEG RODS, E COLI ruq pain, gallbladder is normal, without gallstones, gallbladder wall thickening or pericholecystic fluid. There is no biliary ductal dilatation US 12-09 plan admitted. IV fluids, IV antibiotics. Replace potassium. Trend labs, home medications, DVT prophylaxis. Full code. blood culture renal sono 12-[address] and CONT IV ZOSYN , CONSULT GI, CHK LFT;S 12-10 RUQ under ribs and some in right flank - Tolerating liquids. No vomiting. Stooled yesterday after Miralax. d/w rn 28 MIN pt exam, chart review, > 50% of time spent with exam, chart review, pt care coordination History of Present Illness History of Present Illness CHIEF COMPLAINT: Flank pain. HISTORY OF PRESENT ILLNESS: The patient is a pleasant 20-year-old female who was sent home from the ER yesterday with a diagnosis of a UTI. She did get some antibiotics, but now her symptoms are worsening. She tried [id number] Azo, but that still did not work. She rates her symptoms at 9/10. I discussed the case with the ER physician. It appears she has pyelonephritis. We are going to admit the patient, give her fluids and antibiotics. PAST MEDICAL HISTORY: Gilbert syndrome, tonsillectomy and UTI and pyelonephritis. ALLERGIES: None. FAMILY HISTORY: Pyelonephritis. SOCIAL HISTORY: She does not drink, smoke or take drugs. She has a 3-year-old son. 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 MEDICATIONS: Reviewed, please refer to the MRAD. REVIEW OF SYSTEMS: GENERAL: No history of weight change, weakness or fevers. SKIN: No bruising, hair changes or rashes. EYES: No blurred, double or loss of vision. NOSE AND THROAT: No history of nosebleeds, hoarseness or sore throat. HEART: No history of palpitations, chest pain or shortness of breath on exertion. LUNGS: Denies cough, hemoptysis, wheezing or shortness of breath. GASTROINTESTINAL: Denies changes in appetite, nausea, vomiting, diarrhea or constipation. GENITOURINARY: No history of frequency, urgency, hesitancy or nocturia. NEUROLOGIC: Denies history of numbness, tingling, tremor or weakness. PSYCHIATRIC: No history of panic, anxiety or depression. ENDOCRINE: No history of heat or cold intolerance, polyuria or polydipsia. EXTREMITIES: Denies muscle weakness, joint pain, pain on walking or stiffness. MUSCULOSKELETAL: She complains of flank pain. Vitals Vitals Vital Signs Date Time Temp Pulse Resp B/P (MAP) Pulse Ox O2 Delivery O2 Flow Rate FiO2 12/10/20 09:50 Room Air 12/10/20 07:00 99.5 74 16 150/100 (117) 97 99.5 Physical Exam Physical Exam GENERAL: Alert, oriented female, not in any distress. VITAL SIGNS: Stable, HEENT: Both pupils are round and reacting. No conjunctival lesion. No lesion in the mouth. NECK: Supple, no JVP, no lymphadenopathy. LUNGS: Clear. HEART: S1, S2 regular. ABDOMEN: Right upper quadrant tenderness present, no rebound or guarding. No organomegaly appreciated. There is mild right CVA tenderness also present. EXTREMITIES: No edema or cyanosis. SKIN: Unremarkable. NEUROLOGIC: The patient is neurologically alert, awake and appropriate. No focal neurologic deficit. General: Alert, Oriented X3, Cooperative, No acute distress Heart: Regular rate, Normal S1, No murmurs Lungs: Clear Abdomen: Normal bowel sounds, Soft, No tenderness, Other (less tender) Extremities: No clubbing, No cyanosis Skin: No significant lesion Labs LABS URINE CULTURE Final Final GREATER THAN 100,000 CFU/ML [ESCHERICHIA COLI] on 12/07/20 at 0903 Testing Performed by: [address] [id number] For Inquires, the Physician may contact the Microbiology department at [phone] ESCHERICHIA COLI ANTIMICROBIAL SUSCEPTIBILITY Final Comment NEG GILLIAN 56 ESCHERICHIA COLI ANTIBIOTIC RESULT INTERPRETATION AMPICILLIN/SULBACTAM <=4/2 S AMIKACIN <=16 S AMPICILLIN <=8 S AMOXICILLIN/K CLAVULANATE <=8/4 S AZTREONAM <=4 S CEFTRIAXONE <=1 S CEFTAZIDIME <=1 S CEFOTAXIME <=2 S CEFOXITIN <=8 S CEFAZOLIN <=2 S CIPROFLOXACIN <=0.25 S CEFEPIME <=2 S CEFUROXIME <=4 S CEFTAZIDIME/AVIBACTAM <=4 S ERTAPENEM <=0.5 S NITROFURANTOIN <=32 S GENTAMICIN <=2 S LEVOFLOXACIN <=0.5 S MEROPENEM <=1 S PIPERACILLIN/TAZOBACTAM <=8 S TRIMETHOPRIM/SULFAMETHOXAZOLE <=0.5/9.5 S TETRACYCLINE <=4 S TOBRAMYCIN <=2 S Unless otherwise specified, Testing Performed by: Exam Date: 12/10/2020 5:49 AM US ABDOMEN LTD Indication: Reason: ruq pain / Spl. Instructions: / History: TECHNIQUE: Multiple longitudinal and transverse sonographic images of the right upper quadrant and gallbladder are submitted for interpretation. FINDINGS: The liver is normal in size and echogenicity. The portal vein is patent, with hepatopetal flow. No focal intrahepatic abnormality is seen. The gallbladder is normal, without gallstones, gallbladder wall thickening or pericholecystic fluid. There is no biliary ductal dilatation, with the common bile duct measuring 4 mm. The visualized abdominal aorta, inferior vena cava and pancreas are within normal limits. There is no upper abdominal ascites. The right kidney is normal in appearance, measuring 15.5 cm. IMPRESSION: Normal right upper quadrant abdominal ultrasound exam. Electronically signed by: Abbi Michelle MD (12/10/2020 7:35 AM) [id number] DICTATED and SIGNED BY: ABBI MICHELLE MD DATE: 12/10/20 [id number] 0 Assessment and Plan Assessmemt and Plan Problems Medical Problems: (1) Pyelonephritis Status: Acute Comment Review of Relevant I have reviewed the following items sam (where applicable) has been applied. Labs Laboratory Tests Test 12/09/20 04:12 White Blood Count 5.0 x10^3/uL (4.0-11.0) Red Blood Count 3.74 x10^6/uL (3.50-5.40) Hemoglobin 11.9 g/dL (12.0-15.5) Hematocrit 34.6 % (36.0-47.0) Mean Corpuscular Volume 93 fL (79-100) Mean Corpuscular Hemoglobin 32 pg (25-35) Mean Corpuscular Hemoglobin Concent 34 g/dL (31-37) Red Cell Distribution Width 12.8 % (11.5-14.5) Platelet Count 135 x10^3/uL (140-400) Neutrophils (%) (Auto) 58 % (31-73) Lymphocytes (%) (Auto) 25 % (24-48) Monocytes (%) (Auto) 15 % (0-9) Eosinophils (%) (Auto) 1 % (0-3) Basophils (%) (Auto) 0 % (0-3) Neutrophils # (Auto) 2.9 x10^3/uL (1.8-7.7) Lymphocytes # (Auto) 1.2 x10^3/uL (1.0-4.8) Monocytes # (Auto) 0.8 x10^3/uL (0.0-1.1) Eosinophils # (Auto) 0.1 x10^3/uL (0.0-0.7) Basophils # (Auto) 0.0 x10^3/uL (0.0-0.2) Sodium Level 138 mmol/L (136-145) Potassium Level 3.5 mmol/L (3.5-5.1) Chloride Level 106 mmol/L (98-107) Carbon Dioxide Level 23 mmol/L (21-32) Anion Gap 9 (6-14) Blood Urea Nitrogen 5 mg/dL (7-20) Creatinine 0.7 mg/dL (0.6-1.0) Estimated GFR (Cockcroft-Gault) 105.6 BUN/Creatinine Ratio 7 (6-20) Glucose Level 100 mg/dL (70-99) Calcium Level 7.8 mg/dL (8.5-10.1) Total Bilirubin 2.4 mg/dL (0.2-1.0) Aspartate Amino Transf (AST/SGOT) 26 U/L (15-37) Alanine Aminotransferase (ALT/SGPT) 44 U/L (14-59) Alkaline Phosphatase 200 U/L (46-116) Total Protein 5.1 g/dL (6.4-8.2) Albumin 2.3 g/dL (3.4-5.0) Albumin/Globulin Ratio 0.8 (1.0-1.7) Microbiology 12/08/20 Blood Culture - Preliminary, Resulted NO GROWTH AFTER 2 DAYS 12/07/20 Urine Culture - Final, Complete Medications Current Medications Sodium Chloride 1,000 ml @ 1,000 mls/hr 1X ONCE IV Last administered on 12/07/20at 14:55; Start 12/07/20 at 14:45; Stop 12/07/20 at 15:44; Status DC Ketorolac Tromethamine (Toradol 15mg Vial) 15 mg 1X ONCE IVP Last administered on 12/07/20at 14:56; Start 12/07/20 at 14:45; Stop 12/07/20 at 14:48; Status DC Hydromorphone HCl (Dilaudid) 1 mg 1X ONCE IVP Last administered on 12/07/20at 14:56; Start 12/07/20 at 14:45; Stop 12/07/20 at 14:47; Status DC Ondansetron HCl (Zofran) 4 mg 1X ONCE IVP Last administered on 12/07/20at 14:56; Start 12/07/20 at 14:45; Stop 12/07/20 at 14:47; Status DC Piperacillin Sod/ Tazobactam Sod (Zosyn Per Pharmacy) 1 each PRN DAILY PRN MC SEE COMMENTS; Start 12/07/20 at 15:45; Status Cancel Piperacillin Sod/ Tazobactam Sod 3.375 gm/Sodium Chloride 50 ml @ 100 mls/hr 1X ONCE IV Last administered on 12/07/20at 16:12; Start 12/07/20 at 15:45; Stop 12/07/20 at 16:14; Status DC Acetaminophen/ Hydrocodone Bitart (Lortab 5/325) 1 tab PRN Q4HRS PRN PO PAIN Last administered on 12/10/20at 08:39; Start 12/07/20 at 16:45 Piperacillin Sod/ Tazobactam Sod 3.375 gm/Sodium Chloride 50 ml @ 100 mls/hr Q6HRS IV Last administered on 12/10/20at 06:17; Start 12/08/20 at 00:00; Stop 12/10/20 at 08:16; Status DC Sodium Chloride 1,000 ml @ 150 mls/hr Q6H40M IV Last administered on 12/10/20at 09:53; Start 12/07/20 at 17:45 Ibuprofen (Motrin) 600 mg PRN Q6HRS PRN PO INFLAMMATION Last administered on 12/09/20 17:07; Start 12/07/20 at 23:30 Potassium Chloride (Klor-Con) 40 meq 1X ONCE PO Last administered on 12/08/20 11:07; Start 12/08/20 at 09:00; Stop 12/08/20 at 09:01; Status DC Potassium Chloride (Klor-Con) 20 meq DAILYWBKFT PO Last administered on 12/10/20 08:38; Start 12/09/20 at 08:00 Diphenhydramine HCl (Benadryl) 25 mg QHS PRN PO INSOMNIA Last administered on 12/09/20 22:12; Start 12/08/20 at 21:00 Lactobacillus Rhamnosus (Culturelle) 1 cap BID PO Last administered on 12/10/20 08:38; Start 12/08/20 at 21:00 Polyethylene Glycol (miraLAX PACKET) 17 gm DAILY PO Last administered on 12/09/20 08:58; Start 12/08/20 at 11:00 Ondansetron HCl (Zofran) 4 mg PRN Q6HRS PRN IVP NAUSEA/VOMITING Last administered on 12/10/20 08:48; Start 12/08/20 at 13:30 Morphine Sulfate (Morphine Sulfate) 2 mg PRN Q2HR PRN IV PAIN Last administered on 12/10/20 02:33; Start 12/08/20 at 19:30 Iohexol (Omnipaque 240 Mg/ml) 50 ml 1X ONCE PO ; Start 12/09/20 at 10:15; Stop 12/09/20 at 10:16; Status DC Iohexol (Omnipaque 300 Mg/ml) 75 ml 1X ONCE IV ; Start 12/09/20 at 10:15; Stop 12/09/20 at 10:16; Status DC Famotidine (Pepcid Vial) 20 mg BID IVP Last administered on 12/10/20 08:39; Start 12/09/20 at 12:00 Ceftriaxone Sodium (Rocephin) 2 gm Q24H IVP Last administered on 12/10/20 08:39; Start 12/10/20 at 09:00 Active Scripts Active Anaprox Ds (Naproxen Sodium) 550 Mg Tablet 1 Tab PO BID PRN 15 Days Levofloxacin 750 Mg Tablet 1 Tab PO DAILY 10 Days Reported Alprazolam 0.5 Mg Tablet 1 Tab PO HS PRN Vitals/I & O Vital Sign - Last 24 Hours 12/09/20 12/09/20 12/09/20 12/09/20 10:24 10:33 11:00 13:57 Temp 99.0 99.0 Pulse 81 Resp 18 B/P (MAP) 137/99 (112) Pulse Ox 99 O2 Delivery Room Air Room Air Room Air Room Air 12/09/20 12/09/20 12/09/20 12/09/20 14:30 14:31 16:19 17:00 Temp 99.6 99.6 Pulse 71 Resp 18 B/P (MAP) 149/97 (114) Pulse Ox 99 O2 Delivery Room Air Room Air Room Air Room Air 12/09/20 12/09/20 12/09/20 12/09/20 19:00 19:57 20:00 20:58 Temp 99.5 99.5 Pulse 78 Resp 18 B/P (MAP) 134/87 (103) Pulse Ox 97 O2 Delivery Room Air Room Air Room Air Room Air 12/09/20 12/09/20 12/09/20 12/10/20 22:12 22:48 23:00 00:21 Pulse 68 Resp 18 B/P (MAP) 144/102 (116) Pulse Ox 99 O2 Delivery Room Air Room Air Room Air Room Air 12/10/20 12/10/20 12/10/20 12/10/20 01:00 02:33 03:00 03:00 Temp 98.1 98.1 Pulse 60 Resp 20 B/P (MAP) 134/86 (102) Pulse Ox 98 O2 Delivery Room Air Room Air Room Air Room Air 12/10/20 12/10/20 12/10/20 12/10/20 07:00 07:10 08:39 09:50 Temp 99.5 99.5 Pulse 74 Resp 16 B/P (MAP) 150/100 (117) Pulse Ox 97 O2 Delivery Room Air Room Air Room Air Room Air Intake and Output 12/09/20 12/09/20 12/10/20 15:00 23:00 07:00 Intake Total 1400 ml 50 ml Balance 1400 ml 50 ml Justicifation of Admission Dx: Justifications for Admission: Justification of Admission Dx: Yes TANNER SHERWOOD MD Dec 10, 2020 10:03
[2020-12-10 10:41] VITALS: BP 146/93
--- NOTE | 2020-12-10 11:48 | PDOC ---
Date of Service: DATE: 12/10/20 TIME: 11:42 Subjective: Subjective: Still has pain - RUQ under ribs and some in right flank - better though. Tolerating liquids. No vomiting. Stooled a lot yesterday after Miralax. Objective: Objective: Nurse called this morning asking about diet. Vital Signs: Vital Signs Date Time Temp Pulse Resp B/P (MAP) Pulse Ox O2 Delivery O2 Flow Rate FiO2 12/10/20 10:41 98.2 65 16 146/93 (110) 98 Room Air 98.2 Labs: BLOOD CULTURE Preliminary NO GROWTH AFTER 2 DAYS Imaging: CT A/P IMPRESSION: 1. Right pyelonephritis. There are a few tiny fluid density structures within the central aspect of the right kidney which are new compared to the prior study and possibly due to tiny abscesses. No drainable collection is seen. Follow-up to confirm resolution. 2. New small right and trace left pleural effusions with basilar and posterior dependent atelectasis. 3. Small amount of pelvic free fluid. 4. Cholelithiasis. Abd US IMPRESSION: Normal right upper quadrant abdominal ultrasound exam. PE: GEN: NAD - appears more comfortable today, walked from restroom back to bed easily LUNGS: CTAB HEART: RRR ABD: NABS, soft, RUQ tenderness under ribs NEURO/PSYCH: A & O 3 A/P: Right pyelonephritis RUQ pain, n/v - better H/o Gilbert's -- No gallstones on US, pain some better. ADAT, PO acid-fisher clam, back off on Miralax, observe. Justicifation of Admission Dx: Justifications for Admission: Justification of Admission Dx: Yes JACQUELINE DOYLE Dec 10, 2020 11:48
[2020-12-10] MEDS ORDERED: LOPERAMIDE 2 MG CAPSULE PO PRN ×2 (14:15)
[2020-12-10 15:13] VITALS: BP 141/99
[2020-12-10] MEDS: IBUPROFEN 200 MG TABLET. PO PRN (16:47)
[2020-12-10 19:00] VITALS: BP_SYST 148; BP_SYST 159; BP_DIAS 69; BP_DIAS 99
[2020-12-10] MEDS ORDERED: HYDROmorphone 2 MG/ML VIAL IVP PRN (20:00)
[2020-12-10] MEDS: FAMOTIDINE 20 MG TABLET. PO SCH (20:09)
[2020-12-10] MEDS: CYCLOBENZAPRINE 10 MG TABLET. PO PRN (20:09)
[2020-12-10 23:00] VITALS: BP 148/87
[2020-12-11 03:00] VITALS: BP 152/94
[2020-12-11] MEDS: IV NORMAL SALINE 1000ML BAG 1,000 ML IV SCH ×2 (04:11→11:32)
[2020-12-11 07:00] VITALS: BP 150/101
--- NOTE | 2020-12-11 07:54 | PDOC ---
Infectious Disease Note Subjective Subjective pt is feeling better ROS ROS cont pain, no n/v/d/fever Vital Sign Vital Signs Vital Signs Date Time Temp Pulse Resp B/P (MAP) Pulse Ox O2 Delivery O2 Flow Rate FiO2 12/11/20 03:00 98.9 60 16 152/94 (113) 98 Room Air 98.9 Physical Exam PHYSICAL EXAM GENERAL: Alert, oriented female, not in any distress. VITAL SIGNS: Stable, HEENT: Both pupils are round and reacting. No conjunctival lesion. No lesion in the mouth. NECK: Supple, no JVP, no lymphadenopathy. LUNGS: Clear. HEART: S1, S2 regular. ABDOMEN: Right upper quadrant tenderness present, no rebound or guarding. No organomegaly appreciated. There is mild right CVA tenderness also present. EXTREMITIES: No edema or cyanosis. SKIN: Unremarkable. NEUROLOGIC: The patient is neurologically alert, awake and appropriate. No focal neurologic deficit. Labs Lab Laboratory Tests Test 12/10/20 15:30 C-Reactive Protein, Quantitative 153.2 mg/L (0-3.3) Micro URINE CULTURE Final Final GREATER THAN 100,000 CFU/ML [ESCHERICHIA COLI] on 12/07/20 at 0903 Testing Performed by: [address] [id number] For Inquires, the Physician may contact the Microbiology department at [phone] ESCHERICHIA COLI ANTIMICROBIAL SUSCEPTIBILITY Final Comment NEG GILLIAN 56 ESCHERICHIA COLI ANTIBIOTIC RESULT INTERPRETATION AMPICILLIN/SULBACTAM <=4/2 S AMIKACIN <=16 S AMPICILLIN <=8 S AMOXICILLIN/K CLAVULANATE <=8/4 S AZTREONAM <=4 S CEFTRIAXONE <=1 S CEFTAZIDIME <=1 S CEFOTAXIME <=2 S CEFOXITIN <=8 S CEFAZOLIN <=2 S CIPROFLOXACIN <=0.25 S CEFEPIME <=2 S CEFUROXIME <=4 S CEFTAZIDIME/AVIBACTAM <=4 S ERTAPENEM <=0.5 S NITROFURANTOIN <=32 S GENTAMICIN <=2 S LEVOFLOXACIN <=0.5 S MEROPENEM <=1 S PIPERACILLIN/TAZOBACTAM <=8 S TRIMETHOPRIM/SULFAMETHOXAZOLE <=0.5/9.5 S TETRACYCLINE <=4 S TOBRAMYCIN <=2 S Unless otherwise specified, Testing Performed by: RUN DATE: 12/08/20 [facility] *LIVE* Objective Assessment Rt sided pylonephritis Fever E coli Abdominal pain Plan Plan of Care Bethany,,, ok to d/c , pt has levaquin ct noted, abscess tiny supportive care SHELDON OLSON MD Dec 11, 2020 07:54
--- NOTE | 2020-12-11 08:35 | PDOC ---
PROGRESS NOTES Date of Service: DATE: 12/11/20 TIME: 08:35 Chief Complaint Chief Complaint ASSESSMENT AND PLAN: Urinary tract infection, acute pyelonephritis E COLI hypokalemia. fever sepsis GRAM NEG RODS, E COLI ruq pain, gallbladder is normal, without gallstones, gallbladder wall thickening or pericholecystic fluid. There is no biliary ductal dilatation US 3 plan admitted. IV fluids, IV antibiotics. Replace potassium. Trend labs, home medications, DVT prophylaxis. Full code. blood culture renal sono 12-[address] and CONT IV ZOSYN , CONSULT GI, CHK LFT;S 12-10 RUQ under ribs and some in right flank - Tolerating liquids. No vomiting. Stooled yesterday after Miralax. d/w rn 3-12, better, eating some, tearful re recent hospital stay, agrees to d/c plans after lunch today d/c planning 34 min 28 MIN pt exam, chart review, > 50% of time spent with exam, chart review, pt care coordination History of Present Illness History of Present Illness CHIEF COMPLAINT: Flank pain. HISTORY OF PRESENT ILLNESS: The patient is a pleasant 20-year-old female who was sent home from the ER yesterday with a diagnosis of a UTI. She did get some antibiotics, but now her symptoms are worsening. She tried [id number] Azo, but that still did not work. She rates her symptoms at 9/10. I discussed the case with the ER physician. It appears she has pyelonephritis. We are going to admit the patient, give her fluids and antibiotics. PAST MEDICAL HISTORY: Gilbert syndrome, tonsillectomy and UTI and pyelonephritis. ALLERGIES: None. FAMILY HISTORY: Pyelonephritis. SOCIAL HISTORY: She does not drink, smoke or take drugs. She has a 3-year-old son. 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 MEDICATIONS: Reviewed, please refer to the MRAD. REVIEW OF SYSTEMS: GENERAL: No history of weight change, weakness or fevers. SKIN: No bruising, hair changes or rashes. EYES: No blurred, double or loss of vision. NOSE AND THROAT: No history of nosebleeds, hoarseness or sore throat. HEART: No history of palpitations, chest pain or shortness of breath on exertion. LUNGS: Denies cough, hemoptysis, wheezing or shortness of breath. GASTROINTESTINAL: Denies changes in appetite, nausea, vomiting, diarrhea or constipation. GENITOURINARY: No history of frequency, urgency, hesitancy or nocturia. NEUROLOGIC: Denies history of numbness, tingling, tremor or weakness. PSYCHIATRIC: No history of panic, anxiety or depression. ENDOCRINE: No history of heat or cold intolerance, polyuria or polydipsia. EXTREMITIES: Denies muscle weakness, joint pain, pain on walking or stiffness. MUSCULOSKELETAL: She complains of flank pain. Vitals Vitals Vital Signs Date Time Temp Pulse Resp B/P (MAP) Pulse Ox O2 Delivery O2 Flow Rate FiO2 12/11/20 07:00 98.1 74 17 150/101 (117) 98 Room Air 98.1 Physical Exam Physical Exam GENERAL: Alert, oriented female, not in any distress. VITAL SIGNS: Stable, HEENT: Both pupils are round and reacting. No conjunctival lesion. No lesion in the mouth. NECK: Supple, no JVP, no lymphadenopathy. LUNGS: Clear. HEART: S1, S2 regular. ABDOMEN: Right upper quadrant tenderness present, no rebound or guarding. No organomegaly appreciated. There is mild right CVA tenderness also present. EXTREMITIES: No edema or cyanosis. SKIN: Unremarkable. NEUROLOGIC: The patient is neurologically alert, awake and appropriate. No focal neurologic deficit. General: Alert, Oriented X3, Cooperative, No acute distress Heart: Regular rate, Normal S1, No murmurs Lungs: Clear Abdomen: Normal bowel sounds, Soft, No tenderness, Other (less tender, soft, nad) Extremities: No clubbing, No cyanosis Skin: No rashes, No significant lesion Labs LABS Laboratory Tests Test 12/10/20 15:30 C-Reactive Protein, Quantitative 153.2 mg/L (0-3.3) Assessment and Plan Assessmemt and Plan Problems Medical Problems: (1) Pyelonephritis Status: Acute Comment Review of Relevant I have reviewed the following items sam (where applicable) has been applied. Labs Laboratory Tests Test 12/10/20 15:30 C-Reactive Protein, Quantitative 153.2 mg/L (0-3.3) Laboratory Tests Test 12/10/20 15:30 C-Reactive Protein, Quantitative 153.2 mg/L (0-3.3) Microbiology 12/08/20 Blood Culture - Preliminary, Resulted NO GROWTH AFTER 2 DAYS 12/07/20 Urine Culture - Final, Complete Medications Current Medications Sodium Chloride 1,000 ml @ 1,000 mls/hr 1X ONCE IV Last administered on 12/07/20at 14:55; Start 12/07/20 at 14:45; Stop 12/07/20 at 15:44; Status DC Ketorolac Tromethamine (Toradol 15mg Vial) 15 mg 1X ONCE IVP Last administered on 12/07/20at 14:56; Start 12/07/20 at 14:45; Stop 12/07/20 at 14:48; Status DC Hydromorphone HCl (Dilaudid) 1 mg 1X ONCE IVP Last administered on 12/07/20at 14:56; Start 12/07/20 at 14:45; Stop 12/07/20 at 14:47; Status DC Ondansetron HCl (Zofran) 4 mg 1X ONCE IVP Last administered on 12/07/20at 14:56; Start 12/07/20 at 14:45; Stop 12/07/20 at 14:47; Status DC Piperacillin Sod/ Tazobactam Sod (Zosyn Per Pharmacy) 1 each PRN DAILY PRN MC SEE COMMENTS; Start 12/07/20 at 15:45; Status Cancel Piperacillin Sod/ Tazobactam Sod 3.375 gm/Sodium Chloride 50 ml @ 100 mls/hr 1X ONCE IV Last administered on 12/07/20at 16:12; Start 12/07/20 at 15:45; Stop 12/07/20 at 16:14; Status DC Acetaminophen/ Hydrocodone Bitart (Lortab 5/325) 1 tab PRN Q4HRS PRN PO PAIN Last administered on 12/10/20at 17:58; Start 12/07/20 at 16:45 Piperacillin Sod/ Tazobactam Sod 3.375 gm/Sodium Chloride 50 ml @ 100 mls/hr Q6HRS IV Last administered on 12/10/20at 06:17; Start 12/08/20 at 00:00; Stop 12/10/20 at 08:16; Status DC Sodium Chloride 1,000 ml @ 150 mls/hr Q6H40M IV Last administered on 12/11/20at 04:11; Start 12/07/20 at 17:45 Ibuprofen (Motrin) 600 mg PRN Q6HRS PRN PO INFLAMMATION Last administered on at 16:47; Start 12/07/20 at 23:30 Potassium Chloride (Klor-Con) 40 meq 1X ONCE PO Last administered on 12/08/20at 11:07; Start 12/08/20 at 09:00; Stop 12/08/20 at 09:01; Status DC Potassium Chloride (Klor-Con) 20 meq DAILYWBKFT PO Last administered on 12/10/20at 08:38; Start 12/09/20 at 08:00 Diphenhydramine HCl (Benadryl) 25 mg QHS PRN PO INSOMNIA Last administered on 12/09/20at 22:12; Start 12/08/20 at 21:00 Lactobacillus Rhamnosus (Culturelle) 1 cap BID PO Last administered on 12/10/20at 20:09; Start 12/08/20 at 21:00 Polyethylene Glycol (miraLAX PACKET) 17 gm DAILY PO Last administered on 12/09/20at 08:58; Start 12/08/20 at 11:00; Stop 12/10/20 at 11:48; Status DC Ondansetron HCl (Zofran) 4 mg PRN Q6HRS PRN IVP NAUSEA/VOMITING Last administered on 12/10/20at 20:16; Start 12/08/20 at 13:30 Morphine Sulfate (Morphine Sulfate) 2 mg PRN Q2HR PRN IV PAIN Last administered on 12/10/20at 19:19; Start 12/08/20 at 19:30; Stop 12/10/20 at 19:58; Status DC Iohexol (Omnipaque 240 Mg/ml) 50 ml 1X ONCE PO ; Start 12/09/20 at 10:15; Stop 12/09/20 at 10:16; Status DC Iohexol (Omnipaque 300 Mg/ml) 75 ml 1X ONCE IV ; Start 12/09/20 at 10:15; Stop 12/09/20 at 10:16; Status DC Famotidine (Pepcid Vial) 20 mg BID IVP Last administered on 12/10/20at 08:39; Start 12/09/20 at 12:00; Stop 12/10/20 at 11:48; Status DC Ceftriaxone Sodium (Rocephin) 2 gm Q24H IVP Last administered on 12/10/20at 08:39; Start 12/10/20 at 09:00 Polyethylene Glycol (miraLAX PACKET) 17 gm PRN DAILY PRN PO constipation; Start 12/11/20 at 09:00 Famotidine (Pepcid) 20 mg BID PO Last administered on 12/10/20at 20:09; Start 12/10/20 at 21:00 Loperamide HCl (Imodium) 2 mg PRN Q6HRS PRN PO DIARRHEA Last administered on 12/10/20at 14:26; Start 12/10/20 at 14:15 Loperamide HCl (Imodium) 4 mg PRN Q6HRS PRN PO DIARRHEA; Start 12/10/20 at 14:15 Cyclobenzaprine HCl (Flexeril) 10 mg PRN Q6HRS PRN PO MUSCLE SPASMS Last administered on 12/10/20at 20:09; Start 12/10/20 at 19:45 Hydromorphone HCl (Dilaudid) 1 mg PRN Q4HRS PRN IVP PAIN Last administered on 12/10/20at 20:09; Start 12/10/20 at 20:00 Active Scripts Active Anaprox Ds (Naproxen Sodium) 550 Mg Tablet 1 Tab PO BID PRN 15 Days Levofloxacin 750 Mg Tablet 1 Tab PO DAILY 10 Days Reported Alprazolam 0.5 Mg Tablet 1 Tab PO HS PRN Vitals/I & O Vital Sign - Last 24 Hours 12/10/20 12/10/20 12/10/20 12/10/20 08:39 09:50 10:41 15:13 Temp 98.2 98.6 98.2 98.6 Pulse 65 67 Resp 16 16 B/P (MAP) 146/93 (110) 141/99 (113) Pulse Ox 98 99 O2 Delivery Room Air Room Air Room Air Room Air 12/10/20 12/10/20 12/10/20 12/10/20 16:02 18:58 19:00 19:19 Temp 98.3 98.3 Pulse 64 Resp 20 18 20 B/P (MAP) 148/99 (115) Pulse Ox 99 98 99 O2 Delivery Room Air Room Air Room Air Room Air 12/10/20 12/10/20 12/10/20 3/11/21 20:00 20:09 20:40 23:00 Temp 97.9 97.9 Pulse 66 Resp 20 20 18 B/P (MAP) 148/87 (107) Pulse Ox 99 99 99 O2 Delivery Room Air Room Air Room Air Room Air 12/11/20 12/11/20 03:00 07:00 Temp 98.9 98.1 98.9 98.1 Pulse 60 74 Resp 16 17 B/P (MAP) 152/94 (113) 150/101 (117) Pulse Ox 98 98 O2 Delivery Room Air Room Air Intake and Output 12/10/20 12/10/20 12/11/20 15:00 23:00 07:00 Intake Total 0 ml 1000 ml 1000 ml Output Total 0 ml 0 ml Balance 0 ml 1000 ml 1000 ml Justicifation of Admission Dx: Justifications for Admission: Justification of Admission Dx: Yes TANNER SHERWOOD MD Dec 11, 2020 08:35
[2020-12-11] MEDS ORDERED: POLYETHYLENE GLYCOL 3350 17 GM PACKET. PO PRN (09:00)
--- NOTE | 2020-12-11 09:31 | NUR ---
SW following. Discussed with RN, pt from home, room air, GI soft. Okay to discharge per ID. RN anticipates possible discharge home today. SW will continue to follow.
[2020-12-11] MEDS ORDERED: HYDROcodone/APAP 7.5/325MG 1 TAB TABLET PO PRN (10:15)
[2020-12-11] MEDS: CYCLOBENZAPRINE 10 MG TABLET. PO PRN (10:17)
[2020-12-11] MEDS: cefTRIAXone IV Push 2 GM VIAL. IVP SCH (10:17)
[2020-12-11] MEDS: FAMOTIDINE 20 MG TABLET. PO SCH (10:17)
[2020-12-11] MEDS: POTASSIUM CHLORIDE 20 MEQ TABLET.ER. PO SCH (10:17)
[2020-12-11] MEDS: LACTOBACILLUS RHAMNOSUS GG 1 CAPSULE. PO SCH (10:18)
--- NOTE | 2020-12-11 10:20 | PDOC3 ---
Discharge Summary Date of Admission: Dec 07, 2020 Date of Discharge: Dec 11, 2020 Follow-Up: 3-5 days Admitting Diagnosis comment: HOSPITAL COURSE consults, GI, ID PROCEDURES CT ABD X 2 ABD SONO COMPLICATIONS NONE PROGNOSIS EXCELLENT D/C CONDITION GOOD d/c meds see nov SEE PCP NEXT WEEK, MONDAY RETURN HERE IF NOT IMPROVING Chief Complaint r flank pain Chief Complaint discharge dx Urinary tract infection, acute pyelonephritis E COLI hypokalemia. REPLACED fever sepsis GRAM NEG RODS, E COLI, RESOLVED ruq pain, gallbladder is normal, without gallstones, gallbladder wall thickening or pericholecystic fluid. There is no biliary ductal dilatation US 12-09 plan admitted. IV fluids, IV antibiotics. Replace potassium. Trend labs, home medications, DVT prophylaxis. Full code. blood culture renal sono 12-[address] and CONT IV ZOSYN , CONSULT GI, CHK LFT;S 12-10 RUQ under ribs and some in right flank - Tolerating liquids. No vomiting. Stooled yesterday after Miralax. d/w rn 3-12, better, eating some, tearful re recent hospital stay, agrees to d/c plans after lunch today d/c planning 34 min 28 MIN pt exam, chart review, > 50% of time spent with exam, chart review, pt care coordination History of Present Illness History of Present Illness CHIEF COMPLAINT: Flank pain. HISTORY OF PRESENT ILLNESS: 20-year-old female who was sent home from the ER 12-06 with a diagnosis of a UTI. She did get some antibiotics, but now her symptoms are worsening. She tried [id number] Azo, but that still did not work. She rated her symptoms at 9/10. she has pyelonephritis. id and gi consulted PAST MEDICAL HISTORY: Gilbert syndrome, tonsillectomy and UTI and pyelonephritis. ALLERGIES: None. FAMILY HISTORY: Pyelonephritis. SOCIAL HISTORY: She does not drink, smoke or take drugs. She has a 3-year-old son. 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 MEDICATIONS: Reviewed, please refer to the MRAD. REVIEW OF SYSTEMS: GENERAL: No history of weight change, weakness or fevers. SKIN: No bruising, hair changes or rashes. EYES: No blurred, double or loss of vision. NOSE AND THROAT: No history of nosebleeds, hoarseness or sore throat. HEART: No history of palpitations, chest pain or shortness of breath on exertion. LUNGS: Denies cough, hemoptysis, wheezing or shortness of breath. GASTROINTESTINAL: Denies changes in appetite, nausea, vomiting, diarrhea or constipation. GENITOURINARY: No history of frequency, urgency, hesitancy or nocturia. NEUROLOGIC: Denies history of numbness, tingling, tremor or weakness. PSYCHIATRIC: No history of panic, anxiety or depression. ENDOCRINE: No history of heat or cold intolerance, polyuria or polydipsia. EXTREMITIES: Denies muscle weakness, joint pain, pain on walking or stiffness. MUSCULOSKELETAL: She complains less flank pain. Vitals Vitals Vital Signs Date Time Temp Pulse Resp B/P (MAP) Pulse Ox O2 Delivery O2 Flow Rate FiO2 12/11/20 07:00 98.1 74 17 150/101 (117) 98 Room Air 98.1 Physical Exam Physical Exam GENERAL: Alert, oriented female, not in any distress. VITAL SIGNS: Stable, HEENT: Both pupils are round and react. No conjunctival lesion. No lesion in the mouth. NECK: Supple, no JVP, no lymphadenopathy. LUNGS: Clear. HEART: S1, S2 regular. ABDOMEN: no Right upper quadrant tenderness present, no rebound or guarding. No organomegaly appreciated. no CVA tenderness present. EXTREMITIES: No edema or cyanosis. SKIN: Unremarkable. NEUROLOGIC: The patient is neurologically alert, awake and appropriate. No focal neurologic deficit. General: Alert, Oriented X3, Cooperative, No acute distress Heart: Regular rate, Normal S1, No murmurs Lungs: Clear Abdomen: Normal bowel sounds, Soft, No tenderness, Other (less tender, soft, nad) Extremities: No clubbing, No cyanosis FINAL DIAGNOSIS Problems Medical Problems: (1) Pyelonephritis Status: Acute Brief Hospital Course Ms. Salgado is a 20 old [sex] who presented with [acute pyelonephritis ] CONDITION AT DISCHARGE: Improved Discharge Medications Current Medications Sodium Chloride 1,000 ml @ 1,000 mls/hr 1X ONCE IV Last administered on 12/07/20at 14:55; Start 12/07/20 at 14:45; Stop 12/07/20 at 15:44; Status DC Ketorolac Tromethamine (Toradol 15mg Vial) 15 mg 1X ONCE IVP Last administered on 12/07/20at 14:56; Start 12/07/20 at 14:45; Stop 12/07/20 at 14:48; Status DC Hydromorphone HCl (Dilaudid) 1 mg 1X ONCE IVP Last administered on 12/07/20at 14:56; Start 12/07/20 at 14:45; Stop 12/07/20 at 14:47; Status DC Ondansetron HCl (Zofran) 4 mg 1X ONCE IVP Last administered on 12/07/20at 14:56; Start 12/07/20 at 14:45; Stop 12/07/20 at 14:47; Status DC Piperacillin Sod/ Tazobactam Sod (Zosyn Per Pharmacy) 1 each PRN DAILY PRN MC SEE COMMENTS; Start 12/07/20 at 15:45; Status Cancel Piperacillin Sod/ Tazobactam Sod 3.375 gm/Sodium Chloride 50 ml @ 100 mls/hr 1X ONCE IV Last administered on 12/07/20at 16:12; Start 12/07/20 at 15:45; Stop 12/07/20 at 16:14; Status DC Acetaminophen/ Hydrocodone Bitart (Lortab 5/325) 1 tab PRN Q4HRS PRN PO PAIN Last administered on 12/10/20at 17:58; Start 12/07/20 at 16:45 Piperacillin Sod/ Tazobactam Sod 3.375 gm/Sodium Chloride 50 ml @ 100 mls/hr Q6HRS IV Last administered on 12/10/20at 06:17; Start 12/08/20 at 00:00; Stop 12/10/20 at 08:16; Status DC Sodium Chloride 1,000 ml @ 150 mls/hr Q6H40M IV Last administered on 12/11/20at 04:11; Start 12/07/20 at 17:45 Ibuprofen (Motrin) 600 mg PRN Q6HRS PRN PO INFLAMMATION Last administered on 12/10/20at 16:47; Start 12/07/20 at 23:30 Potassium Chloride (Klor-Con) 40 meq 1X ONCE PO Last administered on 12/08/20at 11:07; Start 12/08/20 at 09:00; Stop 12/08/20 at 09:01; Status DC Potassium Chloride (Klor-Con) 20 meq DAILYWBKFT PO Last administered on 12/10/20at 08:38; Start 12/09/20 at 08:00 Diphenhydramine HCl (Benadryl) 25 mg QHS PRN PO INSOMNIA Last administered on 12/09/20at 22:12; Start 12/08/20 at 21:00 Lactobacillus Rhamnosus (Culturelle) 1 cap BID PO Last administered on 12/10/20at 20:09; Start 12/08/20 at 21:00 Polyethylene Glycol (miraLAX PACKET) 17 gm DAILY PO Last administered on 12/09/20at 08:58; Start 12/08/20 at 11:00; Stop 12/10/20 at 11:48; Status DC Ondansetron HCl (Zofran) 4 mg PRN Q6HRS PRN IVP NAUSEA/VOMITING Last administered on 12/10/20at 20:16; Start 12/08/20 at 13:30 Morphine Sulfate (Morphine Sulfate) 2 mg PRN Q2HR PRN IV PAIN Last administered on 12/10/20at 19:19; Start 12/08/20 at 19:30; Stop 12/10/20 at 19:58; Status DC Iohexol (Omnipaque 240 Mg/ml) 50 ml 1X ONCE PO ; Start 12/09/20 at 10:15; Stop 12/09/20 at 10:16; Status DC Iohexol (Omnipaque 300 Mg/ml) 75 ml 1X ONCE IV ; Start 12/09/20 at 10:15; Stop 12/09/20 at 10:16; Status DC Famotidine (Pepcid Vial) 20 mg BID IVP Last administered on 12/10/20at 08:39; Start 12/09/20 at 12:00; Stop 12/10/20 at 11:48; Status DC Ceftriaxone Sodium (Rocephin) 2 gm Q24H IVP Last administered on 12/10/20at 08:39; Start 12/10/20 at 09:00 Polyethylene Glycol (miraLAX PACKET) 17 gm PRN DAILY PRN PO constipation; Start 12/11/20 at 09:00 Famotidine (Pepcid) 20 mg BID PO Last administered on 12/10/20at 20:09; Start 12/10/20 at 21:00 Loperamide HCl (Imodium) 2 mg PRN Q6HRS PRN PO DIARRHEA Last administered on 12/10/20at 14:26; Start 12/10/20 at 14:15 Loperamide HCl (Imodium) 4 mg PRN Q6HRS PRN PO DIARRHEA; Start 12/10/20 at 14:15 Cyclobenzaprine HCl (Flexeril) 10 mg PRN Q6HRS PRN PO MUSCLE SPASMS Last administered on 12/10/20at 20:09; Start 12/10/20 at 19:45 Hydromorphone HCl (Dilaudid) 1 mg PRN Q4HRS PRN IVP PAIN Last administered on 12/10/20at 20:09; Start 12/10/20 at 20:00 Acetaminophen/ Hydrocodone Bitart (Lortab 7.5/325) 1 tab PRN Q6HRS PRN PO PAIN; Start 12/11/20 at 10:15 Active Scripts Active Anaprox Ds (Naproxen Sodium) 550 Mg Tablet 1 Tab PO BID PRN 15 Days Levofloxacin 750 Mg Tablet 1 Tab PO DAILY 10 Days Reported Alprazolam 0.5 Mg Tablet 1 Tab PO HS PRN Vital Signs Vital Signs Date Time Temp Pulse Resp B/P (MAP) Pulse Ox O2 Delivery O2 Flow Rate FiO2 12/11/20 07:00 98.1 74 17 150/101 (117) 98 Room Air 98.1 Labs Laboratory Tests Test 12/10/20 15:30 C-Reactive Protein, Quantitative 153.2 mg/L (0-3.3) Laboratory Tests Test 12/10/20 15:30 C-Reactive Protein, Quantitative 153.2 mg/L (0-3.3) Allergies Allergies Coded Allergies Type Severity Reaction Last Updated Verified No Known Drug Allergies 12/06/20 No Disposition/Orders: D/C to Home Justicifation of Admission Dx: Justifications for Admission: Justification of Admission Dx: Yes TANNER SHERWOOD MD Dec 11, 2020 10:20
[2020-12-11] MEDS ORDERED: POTA20TA4 PO (10:23)
[2020-12-11] MEDS ORDERED: FAMO20TA5 PO (10:23)
[2020-12-11] MEDS ORDERED: LACT1CAP19 PO (10:23)
[2020-12-11] MEDS ORDERED: POLY17PO52 PO (10:23)
[2020-12-11] MEDS ORDERED: HYDR-2765 PO (10:23)
--- NOTE | 2020-12-11 10:24 | DISCH ---
DISCHARGE INSTRUCTIONS Condition on Discharge Condition on Discharge: Stable Activity After Discharge Activity Instructions for Disc: Activity as tolerated Lifting Instructions after Dis: No heavy lifting, No pulling or pushing Exercise Instruction after Dis: Walk 10 min, 3 x per day Driving Instructions after Dis: Do not drive today Weight Bearing Status after Di: As tolerated Diet after Discharge Diet after Discharge: Regular Liquid Texture: Thin Liquid Checks after Discharge Checks after discharge: Check blood press - daily, Check your Temp as needed Contacting the DR. after DC Call your doctor for: If your condition worsens Follow-Up Follow up with: PCP ON MONDAY Treatment/Equipment after DC Adaptive Equipment Issued: None TANNER SHERWOOD MD Dec 11, 2020 10:24
--- NOTE | 2020-12-11 10:36 | PDOC ---
Date of Service: DATE: 12/11/20 TIME: 10:34 Subjective: Subjective: Not eating much, pain still there. Objective: Objective: Has DC orders. 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 Follow-up w/ GI PRN. Justicifation of Admission Dx: Justifications for Admission: Justification of Admission Dx: Yes JACQUELINE DOYLE Dec 11, 2020 10:35
--- NOTE | 2020-12-11 12:47 | NUR ---
Patient discharged home with self care. Per patient appointment on monday has been made by herself. Patient all questions answered at this time.
== END 2020-12-11 12:10 | disposition home or self-care (01) | DRG 871 ==
LOC: ER 13:34 → 4 NORTH 15:30
PROVIDERS: ADMIT Internal Medicine; ATTEND Internal Medicine
DX: A41.50 Gram-negative sepsis, unspecified (principal); E43 Unspecified severe protein-calorie malnutrition; N10 Acute pyelonephritis; N39.0 Urinary tract infection, site not specified; E87.6 Hypokalemia; E80.4 Gilbert syndrome; F41.9 Anxiety disorder, unspecified; B96.20 Unspecified Escherichia coli [E. coli] as the cause of diseases classified elsewhere; K80.20 Calculus of gallbladder without cholecystitis without obstruction; Z68.21 Body mass index [BMI] 21.0-21.9, adult; Z90.49 Acquired absence of other specified parts of digestive tract; Z84.1 Family history of disorders of kidney and ureter; Z80.9 Family history of malignant neoplasm, unspecified
CPT/HCPCS: 36415; 74177; 76705; 76770; 80048; 80053; 81001; 81025; 83605; 85025; 86140; 87040; 87086; 96361; 96365; 96366; 96375; 96376; 99285; J0696; J1170; J1885; J2270; J2405; J2543; J3490; J7030; G0378; Q0163